=== PATIENT | male | born 1940 | race Caucasian/White ===

== ENCOUNTER 2019-07-16 10:16 | Inpatient (IN) ==
[2019-07-16] MEDS ORDERED: ALBUT/IPRATROP 3MG/0.5MG NEB 3 ML VIAL NEB ONE (10:42)
[2019-07-16 10:50] LABS: Basophils # (auto) 0.02 K/uL (0-0.2); Basophils % (auto) 0.2 %; Eosinophils # (auto) 0.28 K/uL (0-0.5); Eosinophils % (auto) 3.2 %; Hematocrit (blood only) 42.3 % (42-52); Hemoglobin 14.1 g/dL (14.0-18.0); Immature Granulocytes # (auto) 0.02 K/uL (0.00-0.02); Immature Granulocytes % (auto) 0.2 %; Lymphocytes # (auto) 1.42 K/uL (1.2-3.4); Lymphocytes % (auto) 16.4 %; Mean Corpuscular Hemoglobin 30.6 pg (25-34); Mean Corpuscular Hgb Conc 33.3 g/dL (32-36); Mean Corpuscular Volume 91.8 fL (80-100); Mean Platelet Volume 8.9 fL (7.4-10.4); Monocytes # (auto) 0.69 K/uL (0.11-0.59); Neutrophils # (auto) 6.22 K/uL (1.4-6.5); Platelet Count 167 K/uL (130-400); RDW Coefficient of Variation 14.6 % (11.5-14.5); RDW Standard Deviation 48.9 fL (36.4-46.3); Red Blood Count 4.61 M/uL (4.7-6.1); White Blood Count 8.65 K/uL (4.8-10.8)
[2019-07-16 10:57] LABS: Albumin Level 3.4 gm/dl (3.4-5.0); BUN Creatinine Ratio 14.2 (10-20); Calcium 8.7 mg/dl (8.5-10.1); Creatinine Clr Calc Pharmacy 82.5 ml/min; Est GFR (African American) 98.5; Magnesium 1.9 mg/dl (1.8-2.4); Potassium 3.9 mmol/L (3.5-5.1)
[2019-07-16 11:08] LABS: Bilirubin,Total 0.6 mg/dl (0.2-1); Globulin 3.5 gm/dl (2.5-4.0); Thyroid Stimulating Hormone 1.65 uIu/ml (0.300-4.500); Total Protein 6.9 gm/dl (6.4-8.2); Troponin I 0.022 ng/ml (0-0.045)
[2019-07-16] MEDS ORDERED: OPTIRAY 320 125ml IV PRN (11:10)
--- NOTE | 2019-07-16 11:30 | CT Scan Report ---
CT head/brain wo con CLINICAL HISTORY: 79 years-old Male with dizzy, fall. Acute head injury status post fall with dizzin ess TECHNIQUE: Multiple axial CT images of the head were obtained without contrast. A dose lowering tech nique was utilized adhering to the principles of ALARA. COMPARISON: None. FINDINGS: No acute intracranial hemorrhage, midline shift, intracranial mass, hydrocephalus, territorial ischem ia or abnormal extra-axial collection. Age-related involutional changes with ex vacuo ventricular lik steph. Patchy white matter hypodensities suggest chronic microvascular ischemic disease. The calvarium is intact. Trace mastoid effusions. Mild mucoperiosteal thickening of the maxillary an d ethmoid sinuses. Soft tissues and orbits are unremarkable. IMPRESSION: No acute intracranial abnormality or calvarial fracture. The above report was generated using voice recognition software. It may contain grammatical, syntax o r spelling errors. Electronically signed by: Thomas Ny M.D. 07/16/2019 11:29 AM
--- NOTE | 2019-07-16 11:35 | CT Scan Report ---
CT ANGIOGRAM OF THE CHEST CLINICAL HISTORY: Dyspnea. Fall. Dizziness. COMPARISON STUDY: No priors. TECHNIQUE: Following the IV administration of 119 cc of Optiray 320, CT angiogram of the chest was pe rformed from the upper abdomen to the thoracic inlet utilizing the pulmonary embolus protocol. Images are reviewed in the axial, sagittal, and coronal planes. 3-D MIPS images are created and assessed. I V contrast was administered without complication. A dose lowering technique was utilized adhering to the principles of ALARA. The examination is degraded by motion artifact. CT DOSE: 2709.27 mGy.cm FINDINGS: Thyroid: Imaged portions of the thyroid gland are normal in size and attenuation. Thoracic aorta: There is atherosclerotic calcification of the thoracic aorta, which is normal in timmy sahil and demonstrates standard 3-vessel arch anatomy. No dissection is seen. Pulmonary vasculature: The pulmonary trunk is dilated, measuring 3.6 cm in diameter. This suggests pu lmonary artery hypertension. There are no filling defects identified in main, lobar, or segmental pul monary branches to suggest pulmonary embolus. Evaluation of the peripheral branches is degraded by mo tion artifact. Heart: A 2-lead cardiac pacemaker is present in the left chest wall. The heart is enlarged and withou t pericardial effusion. There is lipomatous hypertrophy of the interatrial septum. The coronary arter ies are densely calcified. Lungs and pleural spaces: Evaluation of the lung parenchyma is significantly degraded by motion artif act. Emphysematous change is observed. Foci of scarring/atelectasis are present in both lungs. Mild d iffuse intralobular septal thickening suggests a component of congestive failure. There is a trace ri ght pleural effusion. No airspace consolidation is seen typical for pneumonia. There is no pneumothor ax. The trachea and central airways are clear. Diffuse peribronchial thickening is noted. Mediastinum: There is no mediastinal lymphadenopathy. Alejandrina: Clear. Axillae: There is no axillary lymphadenopathy. Upper abdomen: There is a small hiatal hernia. Reflux of contrast into the IVC and hepatic veins sugg ests cardiac dysfunction. Skeletal structures: The skeletal structures are osteopenic. Degenerative change is seen throughout t he thoracic spine. No lytic or blastic bony lesions are seen. There are healed bilateral rib fracture s. IMPRESSION: 1. There is no evidence of pulmonary embolus in the main, lobar, or segmental pulmonary arteries. 2. Cardiomegaly and cardiac pacemaker. Diffuse intralobular septal thickening suggests a component of congestive failure. Clinical correlation be required. 3. Trace right pleural effusion. 4. Emphysema. 5. Additional findings as above. Electronically signed by: Gerard Dunn M.D. 07/16/2019 11:34 AM
[2019-07-16 11:43] LABS: Base Excess VBG 0.4 mEq/L; HCO3 VBG 28 mmol/L; PCO2 VBG 58 mmHg (38-50); PO2 VBG 23 mmHg
[2019-07-16 11:46] LABS: Oxygen Saturation VBG < 60.0 %
--- NOTE | 2019-07-16 11:50 | CT Scan Report ---
ABDOMEN AND PELVIS CT WITH IV CONTRAST HISTORY: Acute chest and abdominal trauma status post fall fall, weakness TECHNIQUE: Multiaxial CT images of the abdomen and pelvis were performed following the IV administrat ion of 119 cc of Optiray 320, A dose lowering technique was utilized adhering to the principles of A DANIELLA. COMPARISON STUDY: CTA chest and CT lumbar spine studies of same day FINDINGS: Mild intralobular septal thickening of the lung bases. Mild subsegmental bibasilar atelectasis. Trace right pleural effusion. Cardiomegaly with partially imaged pacer leads. No pericardial effusion. No pneumatosis or pneumoperitoneum. The liver, spleen, and adrenal glands are unremarkable. There are a few scattered punctate calcifications noted throughout the pancreas suggestive of chronic pancreatiti s. Unremarkable gallbladder. 12 mm cyst of the inferior pole right kidney. Bilateral nephrolithiasis measures up to 4 mm on the left. No ureteral calculi or obstructive uropathy identified. Mild urinary bladder wall thickening with partial distention. There are 2 adjacent punctate calcifications noted with mild soft tissue prominence conglomerate measuring 6 mm along the left lateral aspect of the uri nary bladder lumen on image 391 series 8. Small fat filled bilateral inguinal hernias with suggestion of hydroceles. Calcifications are noted within the central prostate. 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 No adenopathy. Mild nonspecific wall thickening of the distal esophagus. No bowel obstruction or bowel wall thickeni ng. Colonic diverticulosis without acute diverticulitis. Stool ball noted within the rectum. Normal a ppendix. No ascites or mesenteric inflammation. Soft tissues are within normal limits. Degenerative c hanges of the shoulders and spine. There are several healed remote bilateral rib fractures noted. 25% anterior endplate compression deformity of the L1 vertebral body is technically age-indeterminate ho wever appears chronic. Lumbar levoscoliosis. IMPRESSION: 1. No acute intra-abdominal or intrapelvic abnormality identified. 2. 25% anterior endplate compression deformity of the L1 vertebral body is technically age-indetermin ate however likely chronic. No definite acute fracture identified. 3. Partial distention of the urinary bladder with mild wall thickening. There are a few calcification s noted along the left aspect of the urinary bladder wall. Correlation with cystoscopy should be cons idered to exclude underlying partially calcified mucosal lesion(s). 4. Nonobstructing bilateral nephrolithiasis. 5. Colonic diverticulosis without acute diverticulitis. 6. Additional findings as above. Electronically signed by: Thomas Ny M.D. 07/16/2019 11:48 AM
--- NOTE | 2019-07-16 11:51 | CT Scan Report ---
CT OF THE LUMBAR SPINE CLINICAL HISTORY: fall, back pain COMPARISON STUDY: No previous studies for comparison. TECHNIQUE: Axial images of the lumbar spine were obtained. Sagittal and coronal reconstructions were viewed. Automated exposure control was utilized for the study. A dose lowering technique was utilize d adhering to the principles of ALARA. FINDINGS: Please note that the CT of the abdomen and pelvis will be reported separately. Mild levosco liosis of the lumbar spine is noted. There is severe multilevel disc space narrowing with osteophytos is and vacuum disc phenomenon. There is also severe multilevel facet arthrosis. No acute fracture is noted. Moderate L1 compression deformity is likely old. Paravertebral soft tissues are unremarkable. Central canal neural foramen are suboptimally assessed given CT. IMPRESSION: 1. No acute lumbar spine fracture or subluxation. 2. Moderate L1 compression deformity which is likely old. 3. Severe multilevel degenerative disc disease and facet arthrosis. 4. Mild levoscoliosis of the lumbar spine. Electronically signed by: Kerwin Avery M.D. 07/16/2019 11:49 AM
[2019-07-16] MEDS ORDERED: FUROSEMIDE 40 MG/4 ML VIAL IV STA (12:03)
[2019-07-16] MEDS ORDERED: methylPREDNISolone 125 MG/2 ML VIAL IV STA (12:03)
--- NOTE | 2019-07-16 12:09 | XRay Report ---
XR knee LT 3V CLINICAL HISTORY: Fall. COMPARISON: Left knee fluoroscopic images November 02, 2013. FINDINGS: Cement within the distal left femur and proximal left tibia is noted. A 1 cm subchondral c oncavity of the medial femoral condyle is likely chronic. A moderate size joint effusion is noted. Th ere is no acute fracture. There is mild left knee osteoarthritis. IMPRESSION: 1. No acute fracture. 2. Moderate left knee joint effusion. 3. 1 cm subchondral concavity of the medial femoral condyle which is likely chronic. 4. Cement within the distal left femur and proximal left tibia from previous procedure. Electronically signed by: Kerwin Avery M.D. 07/16/2019 12:08 PM
--- NOTE | 2019-07-16 12:10 | XRay Report ---
XR knee RT 3V CLINICAL HISTORY: fall COMPARISON: None FINDINGS: Alignment of the right knee is anatomic. There is no acute fracture. There is a small to m oderate joint effusion. There is mild medial compartment osteoarthritis. Well-corticated calcificatio ns adjacent to the tibial tubercle are chronic. IMPRESSION: 1. No acute fracture. 2. Small to moderate right knee joint effusion. Electronically signed by: Kerwin Avery M.D. 07/16/2019 12:09 PM
--- NOTE | 2019-07-16 12:11 | XRay Report ---
XR chest 1V portable HISTORY: 79 years-old Male weakness acute weakness COMPARISON: CTA of the chest of same day TECHNIQUE: Portable AP view of the chest FINDINGS: Cardiac silhouette is enlarged. Left subclavian pacer. No pneumothorax or large pleural effusion. Josias ateral interstitial coarsening is noted with pulmonary vascular congestion. Degenerative changes of t he shoulders and spine. Calcific plaque of the thoracic aortic arch. IMPRESSION: Cardiomegaly with mild pulmonary edema. The above report was generated using voice recognition software. It may contain grammatical, syntax o r spelling errors. Electronically signed by: Thomas Ny M.D. 07/16/2019 12:09 PM
[2019-07-16 13:08] LABS: Appearance Urine Clear (Clear); Bacteria Urine Automated Negative (Negative); Bilirubin Urine Negative (Negative); Blood Urine Negative (Negative); Cast Urine Automated 0 /lpf (0-5); Color Urine Yellow; Glucose Urine UA Negative (Negative); Ketones Urine Negative (Negative); Leukocyte Esterase Urine Negative (Negative); Nitrite Urine Negative (Negative); Protein Urine 2+ (Negative); RBC Urine Automated 0-4 /hpf (0-4); Specific Gravity Urine > 1.045 (1.000-1.030); Urobilinogen Urine Negative (Negative)
[2019-07-16] MEDS ORDERED: cefTRIAXone SODIUM 2,000 MG in DEXTROSE 5% 50 ML IV SCH (14:00)
[2019-07-16] MEDS ORDERED: CONSULT PHARMACY STA (14:05)
[2019-07-16] MEDS ORDERED: CEFTRIAXONE CONSULT PHARMACY PRN (14:10)
--- NOTE | 2019-07-16 14:25 | History & Physical Report ---
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 Dixon [facility]), HLD, COPD, Tobacco abuse, nocturnal hypoxia on 2L O2 at HS, depression, GERD, hx of bladder ca low-grade papillary urothelial carcinoma (04/2012 s/p cystoscopy), presents to [facility] ED secondary to lower extremity weakness and fall x3 this morning as well as increasing shortness of breath and cough x2 weeks. Likely in setting of COPD Exac, respiratory acidosis with CO2 retention infectious etiology not entirely ruled out Also possible concern for underlying CHF exac 2/2 to COPD admit to PCU continue bipap until respiratory status, hypercarbia improves IV solumedrol 40mg q8hr IV rocephin - per pharmacy (avoid levaquin given cardiac hx,age, QTC prolonged), along with doxycycline 100mg bid oral to cover for atypical x 5 days pulmonary toilet with duoneb, incentive spirometry and flutter valve blood culture, sputum culture, pro ofelia pending Received IV lasix 40mg in ED - hold any further lasix monitor volume status, clinically doesn't appear volume overloaded (5) Pulmonary edema: likely in setting of COPD exac obtain accurate weight when admitted to floor baseline ~185 received Lasix IV 40mg x 1 monitor volume status closely obtain echo daily weight strict I and O (6) Diabetes: Unknown A1c Obtain A1c in a.m. Hold metformin, NovoLog per protocol (7) CAD (coronary artery disease): On ASA, Zetia, metoprolol, losartan, Imdur Denies chest pain ECG AV paced Obtain echocardiogram -unknown baseline He denies history of CHF, troponin and proBNP WNL On exam patient appears euvolemic, slightly on dry side and urine is concentrated He received 20 mg IV Lasix in ED Ultrasound of IVC did not reveal hypervolemia Strict I's and O's Daily weights -obtain accurate weight on fluid with standing scale, 06/27 he was 190 pounds at PCP office (7 pounds higher than prior visit) (8) HTN (hypertension): Blood pressure controlled Continue losartan 25 mg daily Hold Lasix for now, monitor volume status closely (9) High cholesterol: Continue colesevem (10) Tobacco abuse: Encourage smoking cessation Nicotine patch (11) Depression: Continue Zoloft, trazodone Euthymic affect Trazodone recently started 1.5 weeks ago (12) Chronic pain: 2/2 to Lumbar spinal stenosis CT scan lumbar spine reveals chronic L1 compression deformity on oxycodone 2.5mg prn ( new in the past 1.5 weeks ) caution use given falls and resp status (13) History of bladder cancer: CT scan:Partial distention of the urinary bladder with mild wall thickening. There are a few calcifications noted along the left aspect of the urinary bladder wall. Correlation with cystoscopy should be considered to exclude underlying partially calcified mucosal lesion(s). Hx of bladder ca 2011, last cystoscopy 3 years ago per pt. recommend urology follow up as outpt (14) DVT prophylaxis: Lovenox, SCD/TEDS Disposition: Admit to PCU Follow up: PCP Dr. Barriga upon discharge; would recommend urology follow up given abnormal findings on abd CT and hx of bladder ca Pt was seen and examined in collaboration with Dr. Vasquez, please see addendum History of Present Illness Chief Complaint: Lower extremity weakness and fall times 3 x 1 day; increasing shortness breath and cough x2 weeks. 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 Dixon [facility]), HLD, COPD, Tobacco abuse, nocturnal hypoxia on 2L O2 at HS, depression, GERD, hx of bladder ca low-grade papillary urothelial carcinoma (04/2012 s/p cystoscopy), presents to [facility] ED secondary to lower extremity weakness and fall x3 this morning as well as increasing shortness of breath and cough x2 weeks. and son are at bedside. He elicits he woke up this morning and when trying to go to the bathroom at 3 falls, felt very weak in his legs. He did not lose consciousness or hit his head. He did feel dizzy prior to fall, but not presyncope. He further elicits to having increasing cough over the past 2 weeks, productive, clear sputum, increasing shortness of breath at rest and with exertion, and wheezing. He denies any purulence in sputum fever, chills, sweats, lightheadedness, chest pain, hemoptysis, nausea, vomiting, abdominal pain, dysuria, increased urgency or frequency with urination, change in bowel habits. He is a current half a pac k per day smoker and has smoked since age of 14. He states he does wear 2 L of oxygen at bedtime. He denies any orthopnea or PND, but feels like he wakes up "gasping for air." He denies any increased lower extremity swelling. He does not monitor his weights, but was told his weight was up at his last PCP visit. Discussed case with ED provider. Records were obtained from PCP which did reveal last visit 06/27/2019 in which she is losartan was decreased to 25 mg daily, gabapentin decreased to twice daily. He was started on oxycodone 2.5 mg twice daily as needed secondary to chronic low back pain due to spinal stenosis. He was also encouraged to start Medrol Dosepak. His weight was 190 pounds which was a 7 pounds higher than prior visit. In ED patient remained hemodynamically stable; however was hypoxic requiring 2 L of O2. His CBC was relatively unremarkable, ABG pH 7.30, PCO2 58, BUN/creatinine 11 and 0.80, glucose 133. Glucose WNL at .022, proBN 1,432, TSH 1.67. CTA chest negative for PE, But did reveal diffuse interlobular septal thickening suggesting component of CHF. He had numerous imaging due to fall, lumbar spine CT did reveal a compression deformity at L1. In ED he received furosemide 40 mg x 1 and 60 mg of IV Solu-Medrol. He also received hour-long neb treatment. IVC ultrasound performed at bedside by ED provider which revealed mildly collapsible IVC, but no carlos overload. During my evaluation he was using accessory muscle use despite saturating well on O2. Respiratory therapy was consulted and he was placed on BiPAP. Allergies Allergy/AdvReac Type Severity Reaction Status Date / Time ibuprofen AdvReac Intermediate HIVES Verified 07/16/19 10:35 Home Medications Home Medications Medication Instructions Recorded Confirmed Type aspirin [Aspir-81] 81 mg PO DAILY 07/16/19 07/16/19 History cholecalciferol (vitamin D3) 5,000 unit PO DAILY 07/16/19 07/16/19 History [Vitamin D3] colesevelam 625 mg PO BID 07/16/19 07/16/19 History ezetimibe 10 mg PO HS 07/16/19 07/16/19 History euvkvdobgho-pvexushwy-bxtxgmgm 1 inh INHALATION DAILY 07/16/19 07/16/19 History [Trelegy Ellipta] furosemide 20 mg PO MOWEFR 07/16/19 07/16/19 History gabapentin 100 mg PO BIDM 07/16/19 07/16/19 History isosorbide mononitrate 20 mg PO BID 07/16/19 07/16/19 History losartan 25 mg PO DAILY 07/16/19 07/16/19 History metformin 500 mg PO QPM 07/16/19 07/16/19 History metoprolol succinate 25 mg PO DAILY 07/16/19 07/16/19 History oxycodone 2.5 mg PO DAILY PRN 07/16/19 07/16/19 History sertraline 100 mg PO DAILY 07/16/19 07/16/19 History trazodone 50 mg PO DAILY 07/16/19 07/16/19 History Past Med/Surg History Medical History CAD (coronary artery disease) History of inferior [place], angioplasty right 12/1993; non-Q wave [place] 3; angioplasty and stent circumflex 07/03 Cardiac pacemaker in situ Secondary to bradycardia 02/18/2017 at [facility] Dr. Dixon Chronic pain COPD (chronic obstructive pulmonary disease) Depression Diabetes GERD (gastroesophageal reflux disease) High cholesterol History of bladder cancer Removed by cystoscopy Dr. Martinez 02/23/2012, low-grade papillary urothelial carcinoma with squamous differentiation, per family he has not followed up with cystoscopy in 3 years History of fall Lumbar spinal stenosis Tobacco abuse Surgical History History of ankle surgery History of coronary angioplasty History of pacemaker Family History (Updated 07/16/19 @ 14:34 by Dilcia Roblero PA-C) Other Coronary heart disease Social History (Updated 07/16/19 @ 14:35 by Dilcia Roblero PA-C) Preferred Language: Turkish Communication Ability: Effective [employer] Service Technician Required: No Beliefs That Will Affect Care: None marital status: Current Living Situation: Spouse Other Information That Helps Us Care for You: No Feels Safe at Home: Yes Safety Concerns: Feels Safe At This Time Smoking Status: Current every day smoker Tobacco Type: cigarettes ; Age Started Using Tobacco: 14 ; packs per day: 0.5 ; Years Smoked: 66 ; Do You Dip or Chew Tobacco: No ; Second Hand Exposure: No ; Tobacco Cessation Education Requested by Patient: No Hx Alcohol Use: No Hx Substance Use: No Review of Systems Review of Systems: All systems reviewed & are unremarkable except as noted in HPI & below Physical Exam Physical Exam: constitutional: Elderly, male, lying in bed, using accessory muscles for breathing, on O2 via NC, vitals as above, drowsy but arousable, answers questions appropriately, dyspneic with conversation Head: Normocephalic, Atraumatic Eyes: PERRL, conjunctivae normal, anicteric sclerae, ENMT: external ear and nose normal, oropharynx normal, dry mucous membranes Neck: trachea midline, no thyromegaly normal visual inspection Respiratory: Increased respiratory effort using abdominal musculature, decreased breath sounds at bases, coarse breath sounds throughout, significant expiratory wheezing throughout, wet cough noted on exam, no rales, rhonchi. Cardiovascular: RRR, no murmur, heart sounds distant secondary to coarse breath sounds, no edema Vessels: no JVD or carotid bruit Chest: normal inspection of chest Abdomen: Protuberant abdomen, firm, nontender, no hepatosplenomegaly Musculoskeletal: no cyanosis or clubbing, extremities motor strength 5/5 Skin: no rashes, warm and dry mild turgor Neurologic: PERRL, EOMI, accommodation nl, no face palsy, no dysarthria CN's II-XI intact bilaterally and moves all extremities Psychiatric: A+Ox3, euthymic affect Lymphatic: no cervical or axillary lymphadenopathy : deferred Results & Data Vital Signs (Past 12 Hours) Vital Signs Temp Pulse Pulse Resp BP BP Pulse Ox 07/16/19 13:48 80 19 97 07/16/19 12:59 82 22 137/76 98 07/16/19 12:00 74 18 149/101 H 100 07/16/19 11:29 19 98 07/16/19 10:50 97 07/16/19 10:25 36.8 C 70 18 169/97 H 91 Laboratory Results Short CBC 07/16/19 07/16/19 Range/Units 10:06 10:06 WBC 8.65 (4.8-10.8) K/uL Hgb 14.1 (14.0-18.0) g/dL Hct 42.3 (42-52) % Plt Count 167 (130-400) K/uL NT-Pro-B Natriuret Pep 1432 (0-1800) pg/ml BMP 07/16/19 10:06 Sodium 145 Potassium 3.9 Chloride 111 H Carbon Dioxide 30 BUN 11 Creatinine 0.80 Glucose 133 H Calcium 8.7 Cardiac Enzymes 07/16/19 Range/Units 10:06 Total Creatine Kinase 163 (39-308) U/L Troponin I 0.022 (0-0.045) ng/ml Liver Function 07/16/19 Range/Units 10:06 Total Bilirubin 0.6 (0.2-1) mg/dl AST 15 (15-37) U/L ALT 20 (12-78) U/L Alkaline Phosphatase 104 (45-117) U/L Albumin 3.4 (3.4-5.0) gm/dl Urine 07/16/19 Range/Units 12:20 Urine Color Yellow Urine Appearance Clear (Clear) Urine pH 6.0 (4.5-7.5) Ur Specific [place] > 1.045 H (1.000-1.030) Urine Protein 2+ H (Negative) Urine Glucose (UA) Negative (Negative) Diagnostic Findings Abd/pelvis CT: 1. No acute intra-abdominal or intrapelvic abnormality identified. 2. 25% anterior endplate compression deformity of the L1 vertebral body is technically age-indeterminate however likely chronic. No definite acute fracture identified. 3. Partial distention of the urinary bladder with mild wall thickening. There are a few calcifications noted along the left aspect of the urinary bladder wall. Correlation with cystoscopy should be considered to exclude underlying partially calcified mucosal lesion(s). 4. Nonobstructing bilateral nephrolithiasis. 5. Colonic diverticulosis without acute diverticulitis. 6. Additional findings as above. Chest CTA: IMPRESSION: 1. There is no evidence of pulmonary embolus in the main, lobar, or segmental pulmonary arteries. 2. Cardiomegaly and cardiac pacemaker. Diffuse intralobular septal thickening suggests a component of congestive failure. Clinical correlation be required. 3. Trace right pleural effusion. 4. Emphysema. 5. Additional findings as above. CXR: IMPRESSION: Cardiomegaly with mild pulmonary edema. Head CT: FINDINGS: No acute intracranial hemorrhage, midline shift, intracranial mass, hydrocephalus, territorial ischemia or abnormal extra-axial collection. Age- related involutional changes with ex vacuo ventricular likely. Patchy white matter hypodensities suggest chronic microvascular ischemic disease. The calvarium is intact. Trace mastoid effusions. Mild mucoperiosteal thickening of the maxillary and ethmoid sinuses. Soft tissues and orbits are unremarkable. IMPRESSION: No acute intracranial abnormality or calvarial fracture. Knee Xray: IMPRESSION: 1. No acute fracture. 2. Moderate left knee joint effusion. 3. 1 cm subchondral concavity of the medial femoral condyle which is likely chronic. 4. Cement within the distal left femur and proximal left tibia from previous procedure. Knee Xray: IMPRESSION: 1. No acute fracture. 2. Small to moderate right knee joint effusion. Lumbar Spine CT: IMPRESSION: 1. No acute lumbar spine fracture or subluxation. 2. Moderate L1 compression deformity which is likely old. 3. Severe multilevel degenerative disc disease and facet arthrosis. 4. Mild levoscoliosis of the lumbar spine. Medications Administered Ioversol (Optiray 320 125ml) 119 ml IV ONCE PRN PRN Reason: Interaction Checking Stop: 07/20/19 11:09 Last Admin: 07/16/19 11:11 Dose: 119 ml Documented by: [id number] Discontinued Medications Albuterol (Duoneb) 12 ml NEB ONE ONE Stop: 07/16/19 10:43 Last Admin: 07/16/19 11:27 Dose: 12 ml Documented by: [id number] Furosemide (Lasix) 40 mg IV NOW STA Stop: 07/16/19 12:04 Last Admin: 07/16/19 12:29 Dose: 40 mg Documented by: [id number] Methylprednisolone (Solumedrol) 60 mg IV NOW STA Stop: 07/16/19 12:04 Last Admin: 07/16/19 12:29 Dose: 60 mg Documented by: [id number] ECG Findings: + paced rhythm and + prolonged QT (537ms) Code Status & VTE Plan Code Status Full Code VTE Prophylaxis Plan VTE Prophylaxis will be ordered: Yes Supervising Physician Co-Signing Physician Notes I have seen and examined the patient and have discussed the case with the provider above. I agree with the assessment and plan as stated with the following exceptions. 79 yo M with SOB and coughing x 2 weeks. Wheezing and increased sputum production. No weight gain but evidence of pulm vascular congestion on CXR. Physical reveals WNWD man in slight respiratory distress. Normal mentation and he is not somnolent. Oriented. Lungs reveals wheezing throughout all lung parrish without crackles or rales. Heart exam reveals S1/2 without evidence of m/g/r. No edema or JVD present. IVC examined with bedside US in ER and was collapsible indicating intravascular depletion. UA reveals concentrated urine. Lasix 40mg IV in ER, and good response with 800 cc output within 6 hours, however,he remained tachypneic. Also given in ER was 1 hr neb treatment with albuterol, and BIPAP was started for a few hours. Tachypnea returned and an additional neb trt was given, however, patient is requiring BIPA P. Hypoxia present with significant wheezing thought secondary to a COPD exacerbation. Cont plan as above with scheduled neb treatments, solumedrol, rocephin and monitor for a repsonse. BIPAP overnight. Pt is a full code and is OK with intubation if needed in the short term. DO Pedro (1) Pulmonary edema Chronicity: acute Qualified Code(s): J81.0 - Acute pulmonary edema (2) Fall Encounter type: initial encounter Qualified Code(s): W19.XXXA - Unspecified fall, initial encounter
[2019-07-16] MEDS ORDERED: cefTRIAXone SODIUM 2000MG/70ML D5W IV ONE (14:54)
[2019-07-16 15:04] LABS: Allen Test Pos (Pos); Base Excess ABG -2.5 mEq/L (-9-1.8); HCO3 ABG 22 mmol/L (19-24); Oxygen Saturation ABG 96.6 % (90-95); PCO2 ABG 37 mmHg (35-46); PO2 ABG 84 mm/Hg (80-95)
--- NOTE | 2019-07-16 16:07 | Emergency Department Note ---
Entered by Madhuri Stack acting as a scribe for Bryan Cruz M.D. History of Present Illness General Chief complaint: Fall Time Seen by Provider: 07/16/19 10:22 Source: patient and family Mode of arrival: EMS History of Present Illness Onset (ago): hour(s) 2 Location: head (Falls) Severity: similar to prior episodes Pain Consistency: + other (episodic) Quality: + other (Falls) Associated symptoms: + shortness of breath and + other (Falls, dizzy, leg pain, ear pain.); no confusion, no headaches and no loss of appetite Treatments prior to arrival: other (Fentanyl) The patient is a 79 year old male presenting to the Emergency Department via EMS complaining of episodic falls starting 2 hours ago. The patient reports that he fell this morning from a standing position and fell sideways. He states that he was able to get up after this fall but that it was hard. He explains that after this initial fall, he fell twice more. He notes that both of his legs are sore. He adds that he wasnt able to get up by himself after his last fall. The patient reports that he has fallen before. He states that his ears hurt and that he is having trouble hearing. He explains that he sometimes feels dizzy. He adds that he feels off. The patients family reports that the patient has trouble breathing and uses supplemental oxygen at night but never during the day. They state that the patient regularly smokes. They explain that the patient takes Metformin for potential DM but that he never checks his blood glucose. They note that the patient follows with his PCP in [place], [place]. The patients nurse reports that that the patient received 100 mcg of Fentanyl from EMS [facility]. The patient denies recent head trauma, headache, neck pain, upper extremity pain, confusion and loss of appetite. Home Medications Home Medications Medication Instructions Recorded Confirmed Type aspirin [Aspir-81] 81 mg PO DAILY 07/16/19 07/16/19 History cholecalciferol (vitamin D3) 5,000 unit PO DAILY 07/16/19 07/16/19 History [Vitamin D3] colesevelam 625 mg PO BID 07/16/19 07/16/19 History ezetimibe 10 mg PO HS 07/16/19 07/16/19 History xxanqzyitxz-tnyxoyyab-gstbjfgp 1 inh INHALATION BID 07/16/19 07/16/19 History [Trelegy Ellipta] furosemide 20 mg PO MOWEFR 07/16/19 07/16/19 History gabapentin 100 mg PO BIDM 07/16/19 07/16/19 History isosorbide mononitrate 20 mg PO BID 07/16/19 07/16/19 History losartan 25 mg PO DAILY 07/16/19 07/16/19 History metformin 500 mg PO QPM 07/16/19 07/16/19 History metoprolol succinate 25 mg PO DAILY 07/16/19 07/16/19 History oxycodone 2.5 mg PO DAILY PRN 07/16/19 07/16/19 History sertraline 100 mg PO DAILY 07/16/19 07/16/19 History trazodone 50 mg PO DAILY 07/16/19 07/16/19 History Allergies Allergy/AdvReac Type Severity Reaction Status Date / Time ibuprofen AdvReac Intermediate HIVES Verified 07/16/19 10:35 Past Med/Surg History Medical History CAD (coronary artery disease) History of inferior NC, angioplasty right 12/1993; non-Q wave NC 3; angioplasty and stent circumflex 07/03 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 Dixon Chronic pain COPD (chronic obstructive pulmonary disease) Depression Diabetes GERD (gastroesophageal reflux disease) High cholesterol History of bladder cancer Removed by cystoscopy Dr. Martinez 02/23/2012, low-grade papillary urothelial carcinoma with squamous differentiation, per family he has not followed up with cystoscopy in 3 years History of fall Lumbar spinal stenosis Tobacco abuse Surgical History History of ankle surgery History of coronary angioplasty History of pacemaker Family History (Updated 07/16/19 @ 14:34 by Dilcia Roblero PA-C) Other Coronary heart disease Social History (Updated 07/16/19 @ 14:35 by Dilcia Roblero PA-C) Preferred Language: Swedish Communication Ability: Effective marital status: Current Living Situation: Spouse Feels Safe at Home: Yes Smoking Status: Current every day smoker Age Started Using Tobacco: 14 ; packs per day: 0.5 ; Years Smoked: 66 ; Hx Alcohol Use: Yes (In the past, no current alcohol use) Hx Substance Use: No Review of Systems See HPI for pertinent positives & negatives. and A total of 10 systems reviewed and were otherwise negative Physical Exam Vital Signs Vital Signs - 24 hr 07/16/19 10:25 07/16/19 10:50 07/16/19 11:29 Temperature 36.8 C Temperature Source Oral Pulse Rate 70 Pulse Rate [Apical] Respiratory Rate 18 19 Respiratory Effort / Characteristics Non-Labored Spontaneous Respiratory Depth Respiratory Pattern Blood Pressure 169/97 H Blood Pressure [Left Arm] Blood Pressure Mean 121 Blood Pressure Mean [Left Arm] Pulse Oximetry 91 97 98 Oxygen Delivery Method Room Air Nasal Cannula Nasal Cannula Oxygen Flow Rate 2 2 Fraction of Inspired Oxygen Sepsis Recent Fever Within 48 Hours No Sepsis New/Unexplained Change in Mental Status No Sepsis Action Taken by Nursing No Action Required 07/16/19 12:00 07/16/19 12:59 07/16/19 13:48 Temperature Temperature Source Pulse Rate 80 Pulse Rate [Apical] 74 82 Respiratory Rate 18 22 19 Respiratory Effort / Characteristics Grunting Labored Respiratory Depth Shallow Respiratory Pattern Irregular Blood Pressure Blood Pressure [Left Arm] 149/101 H 137/76 Blood Pressure Mean Blood Pressure Mean [Left Arm] 117 96 Pulse Oximetry 100 98 97 Oxygen Delivery Method Nebulizer Nasal Cannula Oxygen Flow Rate 8 Fraction of Inspired Oxygen 35 Sepsis Recent Fever Within 48 Hours Sepsis New/Unexplained Change in Mental Status Sepsis Action Taken by Nursing GENERAL: Patient appears fatigued. Awake, alert, in no distress. HENT: Normocephalic, atraumatic. EYES: Normal conjunctiva. Sclera non-icteric. PERRL. NECK: Supple. No nuchal rigidity. RESPIRATORY: Increased work of breathing. Expiratory wheeze. Diminished bases. CARDIAC: Normal rate. Irregular rhythm. Extremities warm and well perfused. GI: Soft, non-distended. No tenderness to palpation. RECTAL: Deferred. MUSCULOSKELETAL: Atraumatic. Chest examination reveals no tenderness. LOWER EXTREMITIES: Mild bilateral knee tenderness. Calves are equal size bilaterally. No edema NEURO: No sensory or motor deficits noted. No facial droop. Somewhat slow to answer. SKIN: Warm and dry. No rash or jaundice noted. Course Course 1025: The patient was evaluated in room B9, and a complete history and physical examination were performed. 1214: I reevlauated the patient at this time. 1221: I discussed the patient's case with Delmy Parsons PA-C. Dr. Vasquez [facility] hospitalist will evaluate the patient for further management. Administered Medications Ioversol (Optiray 320 125ml) 119 ml IV ONCE PRN PRN Reason: Interaction Checking Stop: 07/20/19 11:09 Last Admin: 07/16/19 11:11 Dose: 119 ml Documented by: [id number] Discontinued Medications Albuterol (Duoneb) 12 ml NEB ONE ONE Stop: 07/16/19 10:43 Last Admin: 07/16/19 11:27 Dose: 12 ml Documented by: [id number] Ceftriaxone Sodium (Rocephin) Confirm Administered Dose 2,000 mg IV .STK-MED ONE Stop: 07/16/19 14:55 Last Admin: 07/16/19 15:20 Dose: 2,000 mg Documented by: [id number] Furosemide (Lasix) 40 mg IV NOW STA Stop: 07/16/19 12:04 Last Admin: 07/16/19 12:29 Dose: 40 mg Documented by: [id number] Ceftriaxone Sodium 2,000 mg/ (Dextrose) 70 mls @ 140 mls/hr IV Q24H XIOMARA Stop: 07/23/19 13:59 Last Admin: 07/16/19 15:20 Dose: Not Given Documented by: [id number] Methylprednisolone (Solumedrol) 60 mg IV NOW STA Stop: 07/16/19 12:04 Last Admin: 07/16/19 12:29 Dose: 60 mg Documented by: [id number] Medical Decision Making Differential Diagnosis Differential Diagnosis includes but is not limited to dehydration, stroke, anemia, hypoglycemia, hyponatremia, hypernatremia, urinary tract infection, pneumonia, bronchitis, sepsis, gastroenteritis, additional abdominal pathology, metabolic abnormalities and infections. Medical Records Attestation: I reviewed the patient's medical records. Home Medications Current Medication List: was personally reviewed by me Laboratory Data Attestation: I reviewed the patient's lab results. Result diagrams: 07/16/19 10:06 07/16/19 10:06 Lab Results 07/16/19 07/16/19 07/16/19 Range/Units 10:06 10:06 10:06 WBC 8.65 (4.8-10.8) K/uL RBC 4.61 L (4.7-6.1) M/uL Hgb 14.1 (14.0-18.0) g/dL Hct 42.3 (42-52) % MCV 91.8 (80-100) fL MCH 30.6 (25-34) pg MCHC 33.3 (32-36) g/dL RDW Std Deviation 48.9 H (36.4-46.3) fL RDW Coeff of Miri 14.6 H (11.5-14.5) % Plt Count 167 (130-400) K/uL MPV 8.9 (7.4-10.4) fL Immature Gran % (Auto) 0.2 % Neut % (Auto) 72.0 % Lymph % (Auto) 16.4 % [place] % (Auto) 8.0 % Eos % (Auto) 3.2 % Baso % (Auto) 0.2 % Immature Gran # (Auto) 0.02 (0.00-0.02) K/uL Neut # (Auto) 6.22 (1.4-6.5) K/uL Lymph # (Auto) 1.42 (1.2-3.4) K/uL [place] # (Auto) 0.69 H (0.11-0.59) K/uL Eos # (Auto) 0.28 (0-0.5) K/uL Baso # (Auto) 0.02 (0-0.2) K/uL VBG pH (7.36-7.41) VBG pCO2 (38-50) mmHg VBG pO2 mmHg VBG HCO3 mmol/L VBG O2 Saturation % VBG Base Excess mEq/L Barometric Pressure mm/Hg Sodium 145 (136-145) mmol/L Potassium 3.9 (3.5-5.1) mmol/L Chloride 111 H (98-107) mmol/L Carbon Dioxide 30 (21-32) mmol/L Anion Gap 4.0 (3-11) BUN 11 (7-18) mg/dl Creatinine 0.80 (0.6-1.4) mg/dl Est Cr Clr Drug Dosing 82.5 ml/min Est GFR ( Amer) 98.5 Est GFR (Non-Af Amer) 85.0 BUN/Creatinine Ratio 14.2 (10-20) Glucose 133 H (70-99) mg/dl Calcium 8.7 (8.5-10.1) mg/dl Magnesium 1.9 (1.8-2.4) mg/dl Total Bilirubin 0.6 (0.2-1) mg/dl AST 15 (15-37) U/L ALT 20 (12-78) U/L Alkaline Phosphatase 104 (45-117) U/L Total Creatine Kinase 163 (39-308) U/L Troponin I 0.022 (0-0.045) ng/ml NT-Pro-B Natriuret Pep 1432 (0-1800) pg/ml Total Protein 6.9 (6.4-8.2) gm/dl Albumin 3.4 (3.4-5.0) gm/dl Globulin 3.5 (2.5-4.0) gm/dl Albumin/Globulin Ratio 1.0 (0.9-2) TSH 1.650 (0.300-4.500) uIu/ml Urine Color Urine Appearance (Clear) Urine pH (4.5-7.5) Ur Specific Sheridan (1.000-1.030) Urine Protein (Negative) Urine Glucose (UA) (Negative) Urine Ketones (Negative) Urine Blood (Negative) Urine Nitrite (Negative) Urine Bilirubin (Negative) Urine Urobilinogen (Negative) Ur Leukocyte Esterase (Negative) Urine WBC (Auto) (0-5) /hpf Urine RBC (Auto) (0-4) /hpf U Hyaline Cast (Auto) (0-5) /lpf U Epithel Cells (Auto) (0-5) /lpf Urine Bacteria (Auto) (Negative) 07/16/19 07/16/19 Range/Units 11:26 12:20 WBC (4.8-10.8) K/uL RBC (4.7-6.1) M/uL Hgb (14.0-18.0) g/dL Hct (42-52) % MCV (80-100) fL MCH (25-34) pg MCHC (32-36) g/dL RDW Std Deviation (36.4-46.3) fL RDW Coeff of Miri (11.5-14.5) % Plt Count (130-400) K/uL MPV (7.4-10.4) fL Immature Gran % (Auto) % Neut % (Auto) % Lymph % (Auto) % [place] % (Auto) % Eos % (Auto) % Baso % (Auto) % Immature Gran # (Auto) (0.00-0.02) K/uL Neut # (Auto) (1.4-6.5) K/uL Lymph # (Auto) (1.2-3.4) K/uL [place] # (Auto) (0.11-0.59) K/uL Eos # (Auto) (0-0.5) K/uL Baso # (Auto) (0-0.2) K/uL VBG pH 7.30 L (7.36-7.41) VBG pCO2 58 H (38-50) mmHg VBG pO2 23 mmHg VBG HCO3 28 mmol/L VBG O2 Saturation < 60.0 % VBG Base Excess 0.4 mEq/L Barometric Pressure 736.6 mm/Hg Sodium (136-145) mmol/L Potassium (3.5-5.1) mmol/L Chloride (98-107) mmol/L Carbon Dioxide (21-32) mmol/L Anion Gap (3-11) BUN (7-18) mg/dl Creatinine (0.6-1.4) mg/dl Est Cr Clr Drug Dosing ml/min Est GFR ( Amer) Est GFR (Non-Af Amer) BUN/Creatinine Ratio (10-20) Glucose (70-99) mg/dl Calcium (8.5-10.1) mg/dl Magnesium (1.8-2.4) mg/dl Total Bilirubin (0.2-1) mg/dl AST (15-37) U/L ALT (12-78) U/L Alkaline Phosphatase (45-117) U/L Total Creatine Kinase (39-308) U/L Troponin I (0-0.045) ng/ml NT-Pro-B Natriuret Pep (0-1800) pg/ml Total Protein (6.4-8.2) gm/dl Albumin (3.4-5.0) gm/dl Globulin (2.5-4.0) gm/dl Albumin/Globulin Ratio (0.9-2) TSH (0.300-4.500) uIu/ml Urine Color Yellow Urine Appearance Clear (Clear) Urine pH 6.0 (4.5-7.5) Ur Specific Sheridan > 1.045 H (1.000-1.030) Urine Protein 2+ H (Negative) Urine Glucose (UA) Negative (Negative) Urine Ketones Negative (Negative) Urine Blood Negative (Negative) Urine Nitrite Negative (Negative) Urine Bilirubin Negative (Negative) Urine Urobilinogen Negative (Negative) Ur Leukocyte Esterase Negative (Negative) Urine WBC (Auto) 1-5 (0-5) /hpf Urine RBC (Auto) 0-4 (0-4) /hpf U Hyaline Cast (Auto) 0 (0-5) /lpf U Epithel Cells (Auto) 5-10 H (0-5) /lpf Urine Bacteria (Auto) Negative (Negative) Imaging Data Radiologist's Impression: Radiology results as stated below per my review and the radiologist's interpretation: CT head/brain wo con CLINICAL HISTORY: 79 years-old Male with dizzy, fall. Acute head injury status post fall with dizziness TECHNIQUE: Multiple axial CT images of the head were obtained without contrast. A dose lowering technique was utilized adhering to the principles of ALARA. COMPARISON: None. FINDINGS: No acute intracranial hemorrhage, midline shift, intracranial mass, hydrocephalus, territorial ischemia or abnormal extra-axial collection. Age- related involutional changes with ex vacuo ventricular likely. Patchy white matter hypodensities suggest chronic microvascular ischemic disease. The calvarium is intact. Trace mastoid effusions. Mild mucoperiosteal thickening of the maxillary and ethmoid sinuses. Soft tissues and orbits are unremarkable. IMPRESSION: No acute intracranial abnormality or calvarial fracture. The above report was generated using voice recognition software. It may contain grammatical, syntax or spelling errors. Electronically signed by: Thomas Ny M.D. 07/16/2019 11:[address] ANGIOGRAM OF THE CHEST CLINICAL HISTORY: Dyspnea. Fall. Dizziness. COMPARISON STUDY: No priors. TECHNIQUE: Following the IV administration of 119 cc of Optiray 320, CT angiogram of the chest was performed from the upper abdomen to the thoracic inlet utilizing the pulmonary embolus protocol. Images are reviewed in the axial, sagittal, and coronal planes. 3-D MIPS images are created and assessed. IV contrast was administered without complication. A dose lowering technique was utilized adhering to the principles of ALARA. The examination is degraded by motion artifact. CT DOSE: 2709.27 mGy.cm FINDINGS: Thyroid: Imaged portions of the thyroid gland are normal in size and attenuation. Thoracic aorta: There is atherosclerotic calcification of the thoracic aorta, which is normal in caliber and demonstrates standard 3-vessel arch anatomy. No dissection is seen. Pulmonary vasculature: The pulmonary trunk is dilated, measuring 3.6 cm in diameter. This suggests pulmonary artery hypertension. There are no filling defects identified in main, lobar, or segmental pulmonary branches to suggest pulmonary embolus. Evaluation of the peripheral branches is degraded by motion artifact. Heart: A 2-lead cardiac pacemaker is present in the left chest wall. The heart is enlarged and without pericardial effusion. There is lipomatous hypertrophy of the interatrial septum. The coronary arteries are densely calcified. Lungs and pleural spaces: Evaluation of the lung parenchyma is significantly degraded by motion artifact. Emphysematous change is observed. Foci of scarring/atelectasis are present in both lungs. Mild diffuse intralobular septal thickening suggests a component of congestive failure. There is a trace right pleural effusion. No airspace consolidation is seen typical for pneumonia. There is no pneumothorax. The trachea and central airways are clear. Diffuse peribronchial thickening is noted. Mediastinum: There is no mediastinal lymphadenopathy. Alejandrina: Clear. Axillae: There is no axillary lymphadenopathy. Upper abdomen: There is a small hiatal hernia. Reflux of contrast into the IVC and hepatic veins suggests cardiac dysfunction. Skeletal structures: The skeletal structures are osteopenic. Degenerative change is seen throughout the thoracic spine. No lytic or blastic bony lesions are seen. There are healed bilateral rib fractures. IMPRESSION: 1. There is no evidence of pulmonary embolus in the main, lobar, or segmental pulmonary arteries. 2. Cardiomegaly and cardiac pacemaker. Diffuse intralobular septal thickening suggests a component of congestive failure. Clinical correlation be required. 3. Trace right pleural effusion. 4. Emphysema. 5. Additional findings as above. Electronically signed by: Gerard Dunn M.D. 07/16/2019 11:34 AM A[address]OMEN AND PELVIS CT WITH IV CONTRAST HISTORY: Acute chest and abdominal trauma status post fall fall, weakness TECHNIQUE: Multiaxial CT images of the abdomen and pelvis were performed following the IV administration of 119 cc of Optiray 320, A dose lowering technique was utilized adhering to the principles of ALARA. COMPARISON STUDY: CTA chest and CT lumbar spine studies of same day FINDINGS: Mild intralobular septal thickening of the lung bases. Mild subsegmental bibasilar atelectasis. Trace right pleural effusion. Cardiomegaly with partially imaged pacer leads. No pericardial effusion. No pneumatosis or pneumoperitoneum. The liver, spleen, and adrenal glands are unremarkable. There are a few scattered punctate calcifications noted throughout the pancreas suggestive of chronic pancreatitis. Unremarkable gallbladder. 12 mm cyst of the inferior pole right kidney. Bilateral nephrolithiasis measures up to 4 mm on the left. No ureteral calculi or obstructive uropathy identified. Mild urinary bladder wall thickening with partial distention. There are 2 adjacent punctate calcifications noted with mild soft tissue prominence conglomerate measuring 6 mm along the left lateral aspect of the urinary bladder lumen on image 391 series 8. Small fat filled bilateral inguinal hernias with suggestion of hydroceles. Calc ifications are noted within the central prostate. 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 No adenopathy. Mild nonspecific wall thickening of the distal esophagus. No bowel obstruction or bowel wall thickening. Colonic diverticulosis without acute diverticulitis. S tool ball noted within the rectum. Normal appendix. No ascites or mesenteric inflammation. Soft tissues are within normal limits. Degenerative changes of the shoulders and spine. There are several healed remote bilateral rib fractures noted. 25% anterior endplate compression deformity of the L1 vertebral body is technically age-indeterminate however appears chronic. Lumbar levoscoliosis. IMPRESSION: 1. No acute intra-abdominal or intrapelvic abnormality identified. 2. 25% anterior endplate compression deformity of the L1 vertebral body is technically age-indeterminate however likely chronic. No definite acute fracture identified. 3. Partial distention of the urinary bladder with mild wall thickening. There are a few calcifications noted along the left aspect of the urinary bladder wall. Correlation with cystoscopy should be considered to exclude underlying partially calcified mucosal lesion(s). 4. Nonobstructing bilateral nephrolithiasis. 5. Colonic diverticulosis without acute diverticulitis. 6. Additional findings as above. Electronically signed by: Thomas Ny M.D. 07/16/2019 11:[address] OF THE LUMBAR SPINE CLINICAL HISTORY: fall, back pain COMPARISON STUDY: No previous studies for comparison. TECHNIQUE: Axial images of the lumbar spine were obtained. Sagittal and coronal reconstructions were viewed. Automated exposure control was utilized for the study. A dose lowering technique was utilized adhering to the principles of ALARA. FINDINGS: Please note that the CT of the abdomen and pelvis will be reported separately. Mild levoscoliosis of the lumbar spine is noted. There is severe multilevel disc space narrowing with osteophytosis and vacuum disc phenomenon. There is also severe multilevel facet arthrosis. No acute fracture is noted. Moderate L1 compression deformity is likely old. Paravertebral soft tissues are unremarkable. Central canal neural foramen are suboptimally assessed given CT. IMPRESSION: 1. No acute lumbar spine fracture or subluxation. 2. Moderate L1 compression deformity which is likely old. 3. Severe multilevel degenerative disc disease and facet arthrosis. 4. Mild levoscoliosis of the lumbar spine. Electronically signed by: Kerwin Avery M.D. 07/16/2019 11:49 AM XR chest 1V portable HISTORY: 79 years-old Male weakness acute weakness COMPARISON: CTA of the chest of same day TECHNIQUE: Portable AP view of the chest FINDINGS: Cardiac silhouette is enlarged. Left subclavian pacer. No pneumothorax or large pleural effusion. Bilateral interstitial coarsening is noted with pulmonary vascular congestion. Degenerative changes of the shoulders and spine. Calcific plaque of the thoracic aortic arch. IMPRESSION: Cardiomegaly with mild pulmonary edema. The above report was generated using voice recognition software. It may contain grammatical, syntax or spelling errors. Electronically signed by: Thomas Ny M.D. 07/16/2019 12:09 PM XR knee LT 3V CLINICAL HISTORY: Fall. COMPARISON: Left knee fluoroscopic images November 02, 2013. FINDINGS: Cement within the distal left femur and proximal left tibia is noted. A 1 cm subchondral concavity of the medial femoral condyle is likely chronic. A moderate size joint effusion is noted. There is no acute fracture. There is mild left knee osteoarthritis. IMPRESSION: 1. No acute fracture. 2. Moderate left knee joint effusion. 3. 1 cm subchondral concavity of the medial femoral condyle which is likely chronic. 4. Cement within the distal left femur and proximal left tibia from previous procedure. Electronically signed by: Kerwin Avery M.D. 07/16/2019 12:08 PM XR knee RT 3V CLINICAL HISTORY: fall COMPARISON: None FINDINGS: Alignment of the right knee is anatomic. There is no acute fracture. There is a small to moderate joint effusion. There is mild medial compartment osteoarthritis. Well-corticated calcifications adjacent to the tibial tubercle are chronic. IMPRESSION: 1. No acute fracture. 2. Small to moderate right knee joint effusion. Electronically signed by: Kerwin Avery M.D. 07/16/2019 12:09 PM ECG Data Attestation: I personally reviewed and interpreted this ECG as follows: Indication: + other (Fall, Dizzy) Rate (beats per minute): 80 Rhythm: + other (AV paced. ) ECG Intervals/blocks: no Normal QRS (Widened QRS.) ECG Findings: no PVCs Comparison ECG Date: from (10/23/13) Change: the following changes noted (Patient is now paced. ) Blood Pressure Blood Pressure Findings: Elevated blood pressure Blood Pressure Disposition: further management by hospitalist KIRK Zhou Patient is a 79-year-old gentleman presenting via ambulance today after a fall; has a past medical history of cardiac disease, diabetes, hyperlipidemia. Evidently this morning felt little bit weak and suffered 3 ground-level type falls. Denies striking his head or anticoagulation use. Seems much more short of breath. Received some fentanyl prior to arrival. Complaining some bilateral knee pain and evidently stated he felt somewhat weak getting up. Patient has wheeze and is requiring some ox upon arrival here. Question if this is from that C versus other pulmonary origin. Patient also still feel a bit dizzy earlier but no focal deficits here. Seemed a little bit slow to answer some questions. CT the head was complete as well as CT of the chest to exclude pneumonia or PE. CT abdomen pelvis and CT lumbar spine completed as well. No acute fractures noted. They are aware of possible bladder mass. CT showed may be some evidence of slight fluid overload. No significant neurological deficit lower extremity. Mild bilateral knee tenderness. X-rays here without evidence of acute fracture or dislocation. Likely musculoskeletal and sprain type injury. Basic labs were completed as well as EKG. basic labs were without significant findings besides some mild acidosis and hypercarbia. Likely more COPD exacerbation than CHF. However, given a small dose of Lasix, Solu-Medrol, and DuoNeb. Patient requires admission for his COPD exacerbation/respiratory status at this time given his weakness. Did not find significant new traumatic injury. Discussed with the hospitalist. Impression & Plan COPD exacerbation, Pulmonary edema, Hypoxia, Fall Discharge Plan Visit Data Chief Complaint: Fall ED Provider: Bryan Cruz Discharge Problem: COPD exacerbation, Pulmonary edema, Hypoxia, Fall Patient Disposition: Being Evaluated by Hospitalist Discharge Instructions Interventions: ED Discharge Assessment Last Done: 07/16/19 15:29 Discharge Problem: Pulmonary edema Qualifiers: Chronicity: acute Qualified Code(s): J81.0 - Acute pulmonary edema Fall Qualifiers: Encounter type: initial encounter Qualified Code(s): W19.XXXA - Unspecified fall, initial encounter The scribe's documentation has been prepared under my direction and personally reviewed by me in its entirety. I confirm that the note above accurately reflect s all work, treatment, procedures, and medical decision making performed by me.
[2019-07-16] MEDS ORDERED: ALUMINUM/MAGNESIUM SUSP 30 ML UDC PO PRN (16:31)
[2019-07-16] MEDS ORDERED: MAGNESIUM HYDROXIDE SUSP 30 ML UDC PO PRN (16:31)
[2019-07-16] MEDS ORDERED: CARBOHYDRATES FOR HYPOGLYCEMIA PO PRN (16:31)
[2019-07-16] MEDS ORDERED: POLYETHYLENE (MIRALAX) 17 GM PACK PO PRN (16:31)
[2019-07-16] MEDS ORDERED: DEXTROSE 50% 50 ML SYRINGE IV PRN (16:31)
[2019-07-16] MEDS ORDERED: GLUCOSE 40% GEL 15 GM TUBE PO PRN (16:31)
[2019-07-16] MEDS ORDERED: ACETAMINOPHEN 325 MG TAB PO PRN (16:31)
[2019-07-16] MEDS ORDERED: OXYCODONE HCL IR 5 MG TAB (IMMEDIATE RELEASE) PO PRN (16:31)
[2019-07-16] MEDS ORDERED: GLUCAGON FOR INJ 1 MG VIAL SQ PRN (16:31)
[2019-07-16] MEDS ORDERED: GLUCOSE 10 TABS/TUBE PO PRN (16:31)
[2019-07-16] MEDS ORDERED: ONDANSETRON INJ 2 MG/ML 2 ML VIAL IV PRN (16:31)
[2019-07-16] MEDS ORDERED: ALBUT/IPRATROP 3MG/0.5MG NEB 3 ML VIAL NEB STA (17:11)
[2019-07-16] MEDS: ALBUT/IPRATROP 3MG/0.5MG NEB 3 ML VIAL NEB SCH ×3 (17:23→23:09)
[2019-07-16] MEDS: DOXYCYCLINE HYCLATE 100 MG CAP PO SCH ×2 (17:52→21:04)
[2019-07-16] MEDS: INSULIN ASPART 100 UNITS/ML 3 ML PEN SC SCH ×2 (17:52→21:01)
[2019-07-16] MEDS ORDERED: methylPREDNISolone 40 MG in SYRINGE 0 ML IV SCH (18:00)
[2019-07-16] MEDS ORDERED: ALBUTEROL 0.083% NEBU SOLN 3 ML VIAL NEB STA (18:46)
[2019-07-16 19:32] LABS: Influenza A virus by PCR Neg for Influ A (Neg); Influenza B virus by PCR Neg for Influ B (Neg)
[2019-07-16] MEDS: ENOXAPARIN INJ 40 MG/0.4 ML SYR SQ SCH (21:03)
[2019-07-16] MEDS: EZETIMIBE 10 MG TABLET PO SCH (21:04)
[2019-07-16] MEDS: GABAPENTIN 100 MG CAP PO SCH (21:04)
[2019-07-16] MEDS: ISOSORBIDE MONONITRATE 20 MG TAB PO SCH (21:46)
[2019-07-16] MEDS: methylPREDNISolone 40 MG in SYRINGE 0 ML IV SCH (23:17)
[2019-07-17] MEDS ORDERED: ALBUT/IPRATROP 3MG/0.5MG NEB 3 ML VIAL NEB PRN (01:25)
[2019-07-17] MEDS: ALBUT/IPRATROP 3MG/0.5MG NEB 3 ML VIAL NEB SCH ×4 (03:00→19:12)
[2019-07-17] MEDS: methylPREDNISolone 40 MG in SYRINGE 0 ML IV SCH ×4 (06:06→23:24)
[2019-07-17 07:53] LABS: Hematocrit (blood only) 38.5 % (42-52); Hemoglobin 13.1 g/dL (14.0-18.0); Immature Granulocytes # (auto) 0.02 K/uL (0.00-0.02); Immature Granulocytes % (auto) 0.2 %; Lymphocytes # (auto) 0.56 K/uL (1.2-3.4); Lymphocytes % (auto) 4.4 %; Mean Corpuscular Hemoglobin 30.4 pg (25-34); Mean Corpuscular Volume 89.3 fL (80-100); Mean Platelet Volume 9.3 fL (7.4-10.4); Monocytes # (auto) 0.53 K/uL (0.11-0.59); Monocytes % (auto) 4.2 %; Neutrophils # (auto) 11.63 K/uL (1.4-6.5); Neutrophils % (auto) 91.2 %; Platelet Count 149 K/uL (130-400); RDW Coefficient of Variation 14.5 % (11.5-14.5); RDW Standard Deviation 47.8 fL (36.4-46.3); Red Blood Count 4.31 M/uL (4.7-6.1); White Blood Count 12.74 K/uL (4.8-10.8)
[2019-07-17] MEDS: GABAPENTIN 100 MG CAP PO SCH ×3 (07:59→20:11)
[2019-07-17] MEDS: ISOSORBIDE MONONITRATE 20 MG TAB PO SCH ×2 (07:59→20:11)
[2019-07-17] MEDS: DOXYCYCLINE HYCLATE 100 MG CAP PO SCH ×2 (07:59→20:11)
[2019-07-17] MEDS: CHOLECALCIFEROL 1,000 UNITS TAB PO SCH (08:00)
[2019-07-17] MEDS: NICOTINE 14 MG/24 HR PATCH TD SCH (08:00)
[2019-07-17] MEDS: TRAZODONE HCL 50 MG TAB PO SCH (08:00)
[2019-07-17] MEDS: LOSARTAN POTASSIUM 25 MG TAB PO SCH (08:00)
[2019-07-17] MEDS: METOPROLOL SUCC 25MG EXT REL TAB PO SCH (08:01)
[2019-07-17] MEDS: SERTRALINE HCL 100 MG TABLET PO SCH (08:01)
[2019-07-17] MEDS: ASPIRIN 81 MG ECTAB PO SCH (08:01)
[2019-07-17] MEDS: INSULIN ASPART 100 UNITS/ML 3 ML PEN SC SCH ×4 (08:02→21:33)
[2019-07-17 08:26] LABS: Albumin Globulin Ratio 0.9 (0.9-2); Albumin Level 3.3 gm/dl (3.4-5.0); BUN Creatinine Ratio 21.7 (10-20); Bilirubin,Total 0.4 mg/dl (0.2-1); Calcium 8.8 mg/dl (8.5-10.1); Creatinine Clr Calc Pharmacy 60.5 ml/min; Est GFR (Non-African American) 66.4; Globulin 3.5 gm/dl (2.5-4.0); Potassium 3.6 mmol/L (3.5-5.1); Total Protein 6.8 gm/dl (6.4-8.2)
[2019-07-17 08:33] LABS: Estimated Average Glucose 117 mg/dl; Hemoglobin A1C 5.7 % (4.5-5.6)
[2019-07-17] MEDS ORDERED: VANCOMYCIN CONSULT ACTIVE PRN (14:32)
[2019-07-17] MEDS ORDERED: VANCOMYCIN HCL 2,000 MG in SODIUM CHLORIDE 0.9% 500 ML IV ONE (15:15)
--- NOTE | 2019-07-17 15:21 | Pharmacy Report ---
Pharmacy Abx Dose Short Note - Date of Service July 17, 2019 - Assessment & Plan Assessment 79 year old M ordered empiric vancomycin IV for treatment of gram positive cocci (in clusters) in 1/2 BC * S.aureus/MRSA PCR pending -> if both result as negative isolate is likely CoNS * Patient also on ceftriaxone and doxycycline for treatment of COPD exacerbation * CXR from 07/16: cardiomegaly with mild pulmonary edema * procalcitonin = 0.05 ng/mL Plan Patient meets criteria for vancomycin AUC dosing nomogram: Vancomycin 2000 mg IV (23 mg/kg) x 1, then 1250 mg (14 mg/kg) IV every 12 hours Levels will be ordered if patient continues on therapy beyond 07/18 AUC/ANGELA is the preferred PK/PD target for vancomycin * Target AUC/ANGELA = 400-600 * AUC guided dosing is effective and associated with decreased risk of nephrotoxicity * Trough levels poorly correlate with AUC/ANGELA and trough monitoring has been associated with increased risk of nephrotoxicity Pharmacy will continue to follow and will adjust dose/frequency as necessary. Thank you.
[2019-07-17] MEDS: cefTRIAXone SODIUM 2,000 MG in DEXTROSE 5% 50 ML IV SCH (17:08)
--- NOTE | 2019-07-17 19:43 | Hospitalist Progress Note ---
Date of Service July 17, 2019 Assessment & Plan (1) CHF (congestive heart failure): Chest x-ray showed pulmonary vascular congestion. Echo shows normal systolic function, grade I diastolic dysfunction, apical wall motion abnormality possibly secondary to pacemaker activation. Acute on chronic left ventricular diastolic heart failure. Titrate diuretic therapy. (2) CAD (coronary artery disease): No anginal symptoms. EKG shows paced rhythm. Echo shows normal systolic function, apical wall motion abnormality possibly secondary to pacemaker activation. Continue aspirin, losartan, nitrates, lipid management. (3) Cardiac pacemaker in situ: S/P pacemaker. Appears to be sensing and pacing appropriately. (4) COPD (chronic obstructive pulmonary disease): Severe COPD. Still smoking. Continue nebs and steroids. (5) HTN (hypertension): Continue losartan and isosorbide. 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 Managed with metformin. Hgb A1C 5.7. Hold metformin during hospital stay. Insulin coverage as needed. FBS today = 194. (7) Fall: Several recent falls. Has had associated lightheadedness. Monitor for arrhythmias. Check Orthostatic VS. Management of ambulatory dysfunction as noted below. CT LS spine shoed L1 compression deformity, indeterminate age. X-ray knees show moderate effusions, ? secondary to trauma. Consult Ortho. (8) Ambulatory dysfunction: Has lumbar spinal stenosis and subjective lower extremity weakness. No cord compression seen on CT, but imaging limited. PT / OT evals. Fall precautions. Consult Ortho Spine and Neuro. (9) Lumbar spinal stenosis: As noted above. (10) Diplopia: Intermittent diplopia and blurred vision. No acute findings on CT. Cannot do MRI due to pacemaker. Consult Neurology. (11) Positive blood culture: 1 of 2 blood cultures growing gram + cocci in clusters. PCR for Staph aureus and MSSA negative. Started on IV vancomycin. ? source. Has chronic + worsening lumbar pain, but no apparent discitis or osteomyelitis per CT. Echo does not show any valvular vegetations. Consult ID. (12) Tobacco abuse: Smoking cessation counseling. Nicotine replacement. (13) DVT prophylaxis: SQ enoxaparin. Follow. (14) Discharge planning issues: Discharge disposition to be determined. Internal Medicine follow-up with Dr. Barriga. Subjective Recheck for multiple problems. Patient seen in their room around 1800. Family visiting. Still somewhat SOB. No chest pain. No fever. No significant cough. Ongoing back pain, chronic but worse. Lower extremity weakness. Blurred vision with intermittent diplopia. Would like additional nicotine replacement. Review of Systems: Constitutional- no fever. Cardiac- as noted above. Pulmonary- as noted above. GI- no nausea, vomiting, diarrhea, melena, hematochezia. - no urinary symptoms. Otherwise, as noted above. Physical Exam Constitutional: no acute distress Eyes: + anicteric sclerae Respiratory: no respiratory distress Auscultation: + wheezes Cardiovascular: Rate/Rhythm: regular rate and regular rhythm Heart Sounds: no gallop (none appreciated, exam limited), no murmur (none appreciated, exam limited) and no cardiac rub Vessels: no JVD Extremities: + edema (trace); no calf tenderness Gastrointestinal (Abdomen): normal bowel sounds, soft, nontender, no hepatosplenomegaly Musculoskeletal: Spine: no paraspinal tenderness and straight leg raise negative bilaterally Extremities: no cyanosis Skin: no rashes, warm and dry Neurologic: PERRL, EOMI no facial palsy motor strength upper and lower extremities essentially 5/5 patellar DTR's 1/2 plantar reflexes downgoing Psychiatric: Orientation: alert and oriented x 3 Results & Data Vital Signs (Past 12 Hours) Vital Signs Temp Pulse Resp BP Pulse Ox 07/17/19 19:17 74 18 97 07/17/19 19:15 36.7 C 80 18 95/60 L 95 07/17/19 15:31 36.4 C L 79 18 110/65 96 07/17/19 13:20 75 24 96 07/17/19 12:03 36.9 C 77 18 109/65 92 Laboratory Results Laboratory Results - last 24 hr 07/16/19 07/17/19 07/17/19 14:20 07:38 07:38 WBC 12.74 H RBC 4.31 L Hgb 13.1 L Hct 38.5 L MCV 89.3 MCH 30.4 MCHC 34.0 RDW Std Deviation 47.8 H RDW Coeff of Miri 14.5 Plt Count 149 MPV 9.3 Immature Gran % (Auto) 0.2 Neut % (Auto) 91.2 Lymph % (Auto) 4.4 Cuming % (Auto) 4.2 Eos % (Auto) 0.0 Baso % (Auto) 0.0 Immature Gran # (Auto) 0.02 Neut # (Auto) 11.63 H Lymph # (Auto) 0.56 L Cuming # (Auto) 0.53 Eos # (Auto) 0.00 Baso # (Auto) 0.00 Sodium 140 Potassium 3.6 Chloride 105 Carbon Dioxide 29 Anion Gap 6.0 BUN 23 H D Creatinine 1.06 Est Cr Clr Drug Dosing 60.5 Est GFR ( Amer) 77.0 Est GFR (Non-Af Amer) 66.4 BUN/Creatinine Ratio 21.7 H Glucose 196 H POC Glucose Estimat Average Glucose Hemoglobin A1c Calcium 8.8 Total Bilirubin 0.4 AST 11 L ALT 17 Alkaline Phosphatase 91 Total Protein 6.8 Albumin 3.3 L Globulin 3.5 Albumin/Globulin Ratio 0.9 Bld Cult Staph aureus PCR Negative Blood Culture MRSA PCR Negative 07/17/19 07/17/19 07/17/19 07:38 07:43 11:28 WBC RBC Hgb Hct MCV MCH MCHC RDW Std Deviation RDW Coeff of Miri Plt Count MPV Immature Gran % (Auto) Neut % (Auto) Lymph % (Auto) Cuming % (Auto) Eos % (Auto) Baso % (Auto) Immature Gran # (Auto) Neut # (Auto) Lymph # (Auto) Cuming # (Auto) Eos # (Auto) Baso # (Auto) Sodium Potassium Chloride Carbon Dioxide Anion Gap BUN Creatinine Est Cr Clr Drug Dosing Est GFR ( Amer) Est GFR (Non-Af Amer) BUN/Creatinine Ratio Glucose POC Glucose 194 H 459 H* Estimat Average Glucose 117 Hemoglobin A1c 5.7 H Calcium Total Bilirubin AST ALT Alkaline Phosphatase Total Protein Albumin Globulin Albumin/Globulin Ratio Bld Cult Staph aureus PCR Blood Culture MRSA PCR 07/17/19 07/17/19 07/17/19 11:28 11:50 16:27 WBC RBC Hgb Hct MCV MCH MCHC RDW Std Deviation RDW Coeff of Miri Plt Count MPV Immature Gran % (Auto) Neut % (Auto) Lymph % (Auto) Cuming % (Auto) Eos % (Auto) Baso % (Auto) Immature Gran # (Auto) Neut # (Auto) Lymph # (Auto) Cuming # (Auto) Eos # (Auto) Baso # (Auto) Sodium Potassium Chloride Carbon Dioxide Anion Gap BUN Creatinine Est Cr Clr Drug Dosing Est GFR ( Amer) Est GFR (Non-Af Amer) BUN/Creatinine Ratio Glucose 193 H POC Glucose 240 H 135 H Estimat Average Glucose Hemoglobin A1c Calcium Total Bilirubin AST ALT Alkaline Phosphatase Total Protein Albumin Globulin Albumin/Globulin Ratio Bld Cult Staph aureus PCR Blood Culture MRSA PCR 07/17/19 20:27 WBC RBC Hgb Hct MCV MCH MCHC RDW Std Deviation RDW Coeff of Miri Plt Count MPV Immature Gran % (Auto) Neut % (Auto) Lymph % (Auto) Cuming % (Auto) Eos % (Auto) Baso % (Auto) Immature Gran # (Auto) Neut # (Auto) Lymph # (Auto) Cuming # (Auto) Eos # (Auto) Baso # (Auto) Sodium Potassium Chloride Carbon Dioxide Anion Gap BUN Creatinine Est Cr Clr Drug Dosing Est GFR ( Amer) Est GFR (Non-Af Amer) BUN/Creatinine Ratio Glucose POC Glucose 191 H Estimat Average Glucose Hemoglobin A1c Calcium Total Bilirubin AST ALT Alkaline Phosphatase Total Protein Albumin Globulin Albumin/Globulin Ratio Bld Cult Staph aureus PCR Blood Culture MRSA PCR Microbiology 07/16/19 14:25 Blood Aerobic Blood Culture - Preliminary No growth in Aerobic bottle after 24 hours. 07/16/19 14:25 Blood Anaerobic Blood Culture - Final 07/16/19 14:20 Blood Aerobic Blood Culture - Preliminary Gram positive cocci clusters 07/16/19 14:20 Blood Anaerobic Blood Culture - Final (1) Fall Encounter type: initial encounter Qualified Code(s): W19.XXXA - Unspecified fall, initial encounter
[2019-07-17] MEDS: ENOXAPARIN INJ 40 MG/0.4 ML SYR SQ SCH (20:09)
[2019-07-17] MEDS: EZETIMIBE 10 MG TABLET PO SCH (20:10)
[2019-07-18] MEDS: ALBUT/IPRATROP 3MG/0.5MG NEB 3 ML VIAL NEB SCH ×4 (01:10→19:18)
[2019-07-18] MEDS: VANCOMYCIN HCL 1,250 MG in SODIUM CHLORIDE 0.9% 250 ML IV SCH ×2 (04:06→15:34)
[2019-07-18] MEDS: methylPREDNISolone 40 MG in SYRINGE 0 ML IV SCH ×4 (05:28→22:55)
--- NOTE | 2019-07-18 07:12 | XRay Report ---
XR chest 1V portable HISTORY: 79 years-old Male CHF follow-up study in a patient with congestive heart failure COMPARISON: Chest radiograph 07/16/2019 TECHNIQUE: Portable AP view of the chest FINDINGS: Cardiac silhouette is enlarged, unchanged. Pulmonary vascular congestion with decreased pulmonary curtis ma. Left subclavian pacer is unchanged. Calcified plaque of the thoracic aortic arch. Blunting of the costophrenic angles redemonstrated. No large pleural effusion or pneumothorax. Linear retrocardiac o pacities suggest atelectasis. Degenerative changes of the shoulders and spine. IMPRESSION: 1. Cardiomegaly and pulmonary vascular congestion with improved pulmonary edema. 2. Linear retrocardiac opacities suggest atelectasis. ACT 112: Negative or not required by law. The above report was generated using voice recognition software. It may contain grammatical, syntax o r spelling errors. Electronically signed by: Thomas Ny M.D. 07/18/2019 7:11 AM
[2019-07-18 07:32] LABS: Hematocrit (blood only) 40.1 % (42-52); Hemoglobin 13.4 g/dL (14.0-18.0); Mean Corpuscular Hemoglobin 30.6 pg (25-34); Mean Corpuscular Hgb Conc 33.4 g/dL (32-36); Mean Corpuscular Volume 91.6 fL (80-100); Mean Platelet Volume 8.9 fL (7.4-10.4); Platelet Count 167 K/uL (130-400); RDW Coefficient of Variation 14.6 % (11.5-14.5); RDW Standard Deviation 49.2 fL (36.4-46.3); Red Blood Count 4.38 M/uL (4.7-6.1); White Blood Count 20.35 K/uL (4.8-10.8)
[2019-07-18 07:50] LABS: BUN Creatinine Ratio 33.8 (10-20); Calcium 8.5 mg/dl (8.5-10.1); Creatinine Clr Calc Pharmacy 64.3 ml/min; Est GFR (African American) 82.6; Est GFR (Non-African American) 71.3; Potassium 4.1 mmol/L (3.5-5.1)
[2019-07-18] MEDS: INSULIN ASPART 100 UNITS/ML 3 ML PEN SC SCH ×4 (08:19→21:07)
[2019-07-18] MEDS: LOSARTAN POTASSIUM 25 MG TAB PO SCH (08:21)
[2019-07-18] MEDS: CHOLECALCIFEROL 1,000 UNITS TAB PO SCH (08:21)
[2019-07-18] MEDS: DOXYCYCLINE HYCLATE 100 MG CAP PO SCH ×2 (08:21→21:04)
[2019-07-18] MEDS: METOPROLOL SUCC 25MG EXT REL TAB PO SCH (08:21)
[2019-07-18] MEDS: SERTRALINE HCL 100 MG TABLET PO SCH (08:21)
[2019-07-18] MEDS: GABAPENTIN 100 MG CAP PO SCH ×3 (08:22→21:04)
[2019-07-18] MEDS: ISOSORBIDE MONONITRATE 20 MG TAB PO SCH ×2 (08:22→21:06)
[2019-07-18] MEDS: ASPIRIN 81 MG ECTAB PO SCH (08:22)
[2019-07-18] MEDS: NICOTINE 14 MG/24 HR PATCH TD SCH (08:22)
[2019-07-18] MEDS: TRAZODONE HCL 50 MG TAB PO SCH (08:22)
--- NOTE | 2019-07-18 09:39 | Consultation ---
Date of Consultation July 18, 2019 Assessment & Plan (1) Lumbar spinal stenosis: Patient has appears to have an old L1 compression fracture. No acute treatment required for this. It is difficult to assess any degree of stenosis based on his recent lumbar CT. MRI would be preferred scan but he is unable to have this due to his pacemaker. Would recommend CT myelogram of the lumbar spine. This can certainly be done on an outpatient basis once he is medically stable and infection resolved. In light of his sepsis, CT myelogram is currently not an option at this time. It is difficult to tell based on current scans if he has a significant degree of stenosis that is contributing to his lower extremity weakness. I would recommend physical therapy specifically focusing on lower extremity strengthening exercises. There are no acute surgical indications currently. Supervising Physician Co-Signing Physician Notes Dr. Ludwig Joy History of Present Illness This is a 79-year-old gentleman with an extensive medical history significant for COPD, type 2 diabetes, CHF, hypertension, pacemaker, sepsis. He reports 2 days ago he was using the restroom and had 2-3 falls while in the restroom. Denies lightheadedness or dizziness. Reports that his legs gave out from underneath him. He reports he has not walked since due to restrictions placed during his hospital admission. Denies numbness bilateral lower extremities. He reports chronic back pain for many many years. Takes oxycodone at home as needed for pain control. Has seen some left buttock pain. Pain is reproduced when standing. He is most comfortable sitting or lying down. Attending Physician: Yunior Wheatley MD Allergies Allergy/AdvReac Type Severity Reaction Status Date / Time ibuprofen AdvReac Intermediate HIVES Verified 07/16/19 10:35 Home Medications Home Medications Medication Instructions Recorded Confirmed Type aspirin [Aspir-81] 81 mg PO DAILY 07/16/19 07/16/19 History cholecalciferol (vitamin D3) 5,000 unit PO DAILY 07/16/19 07/16/19 History [Vitamin D3] colesevelam 625 mg PO BID 07/16/19 07/16/19 History ezetimibe 10 mg PO HS 07/16/19 07/16/19 History hhnnpcqsmfp-eyeinvcco-uxvxlqpr 1 inh INHALATION DAILY 07/16/19 07/16/19 History [Trelegy Ellipta] furosemide 20 mg PO MOWEFR 07/16/19 07/16/19 History gabapentin 100 mg PO BIDM 07/16/19 07/16/19 History isosorbide mononitrate 20 mg PO BID 07/16/19 07/16/19 History losartan 25 mg PO DAILY 07/16/19 07/16/19 History metformin 500 mg PO QPM 07/16/19 07/16/19 History metoprolol succinate 25 mg PO DAILY 07/16/19 07/16/19 History oxycodone 2.5 mg PO DAILY PRN 07/16/19 07/16/19 History sertraline 100 mg PO DAILY 07/16/19 07/16/19 History trazodone 50 mg PO DAILY 07/16/19 07/16/19 History Patient History Medical History CAD (coronary artery disease) History of inferior IA, angioplasty right 12/1993; non-Q wave IA 3; angioplasty and stent circumflex 07/03 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 Dixon CHF (congestive heart failure) Chronic pain COPD (chronic obstructive pulmonary disease) Depression Diabetes Diabetes mellitus type 2 with complications GERD (gastroesophageal reflux disease) High cholesterol History of bladder cancer Removed by cystoscopy Dr. Martinez 02/23/2012, low-grade papillary urothelial carcinoma with squamous differentiation, per family he has not followed up with cystoscopy in 3 years History of fall Lumbar spinal stenosis Tobacco abuse Surgical History History of ankle surgery History of coronary angioplasty History of pacemaker Family History Other Coronary heart disease Social History Preferred Language: Hungarian Communication Ability: Effective Sustainability Officer Required: No Beliefs That Will Affect Care: None marital status: Current Living Situation: Spouse Other Information That Helps Us Care for You: No Feels Safe at Home: Yes Safety Concerns: Feels Safe At This Time Smoking Status: Current every day smoker Tobacco Type: cigarettes ; Age Started Using Tobacco: 14 ; packs per day: 0.5 ; Years Smoked: 66 ; Do You Dip or Chew Tobacco: No ; Second Hand Exposure: No ; Tobacco Cessation Education Requested by Patient: No Hx Alcohol Use: No Hx Substance Use: No Review of Systems Review of Systems: All systems reviewed & are unremarkable except as noted in HPI & below Physical Exam Physical Exam: Patient is seen in room 241 bed 2. He is alert and oriented x3. No obvious distress. Negative logrolling bilateral lower extremities. Negative tension signs bilateral lower extremities. Motor testing is 5 5 bilateral EHL, dorsiflexion, plantarflexion, quadriceps, hamstrings, hip flexors, hip abductor's and hip adductor's. Constitutional: WD/WN, vitals as above Eyes: normal visual parrish by confrontation ENMT: external ear and nose normal, oropharynx normal Neck: normal visual inspection Respiratory: normal respiratory effort Cardiovascular: Extremities: normal capillary refill Gastrointestinal (Abdomen): Inspection/Auscultation: abdomen normal to inspection Musculoskeletal: Extremities: strength 5/5 throughout Skin: no rashes, warm and dry Neurologic: patellar DTR's 2+ bilat, sensation intact moves all extremities Psychiatric: A+Ox3, euthymic affect Results & Data Vital Signs (Past 12 Hours) Vital Signs Temp Pulse Pulse Resp BP BP Pulse Ox 07/18/19 08:16 36.8 C 84 18 159/85 H 96 07/18/19 07:04 73 20 97 07/18/19 04:00 36.4 C L 78 20 165/88 H 94 07/18/19 01:13 67 20 100 07/18/19 01:11 77 22 100 07/18/19 00:00 75 07/17/19 23:35 36.4 C L 70 17 116/69 98 07/17/19 22:21 75 27 H 97 Diagnostic Findings [phone] CT Scan Report Patient: FEDERICO GUAJARDO CAdmit Date: 07/16/19 MR#: [id number]: [address] Acct ID:[id number]: Date: 1940City Zip: [place] [address] Age: 79Location: ED Sex: M Room/Bed: Att Phy:Diagnosis: FALLS Kayla Phy: Larry Brariga M.D.Service Date: 07/16/19 [facility] Phy:Interpreting Phy: Kerwin Avery MD Admit Phy: Ordering Phy: Bryan Cruz M.D. cc: ~ CT OF THE LUMBAR SPINE CLINICAL HISTORY: fall, back pain COMPARISON STUDY: No previous studies for comparison. TECHNIQUE: Axial images of the lumbar spine were obtained. Sagittal and coronal reconstructions were viewed. Automated exposure control was utilized for the study. A dose lowering technique was utilized adhering to the principles of ALARA. FINDINGS: Please note that the CT of the abdomen and pelvis will be reported separately. Mild levoscoliosis of the lumbar spine is noted. There is severe multilevel disc space narrowing with osteophytosis and vacuum disc phenomenon. There is also severe multilevel facet arthrosis. No acute fracture is noted. Moderate L1 compression deformity is likely old. Paravertebral soft tissues are unremarkable. Central canal neural foramen are suboptimally assessed given CT. IMPRESSION: 1. No acute lumbar spine fracture or subluxation. 2. Moderate L1 compression deformity which is likely old. 3. Severe multilevel degenerative disc disease and facet arthrosis. 4. Mild levoscoliosis of the lumbar spine. Electronically signed by: Kerwin Avery M.D. 07/16/2019 11:49 AM Dictated: 07/16/19 1145 Transcribed:
--- NOTE | 2019-07-18 10:20 | Cardiology Consultation ---
Date of Consultation July 18, 2019 Assessment & Plan (1) SOB (shortness of breath): The patient does not examine his volume overloaded I personally reviewed his chest x-ray and do not believe it is consistent with a vascular congestion pattern more likely a developing infiltrate Laboratory studies also support the fact that he is likely volume depleted I would not diurese any further infected recommend IV fluid I would recommend maintaining him on his outpatient metoprolol, losartan, aspirin, Zetia and Imdur I would recommend he follow-up with his primary auto body painter after discharge No further cardiac testing or intervention is necessary at this time (2) Ambulatory dysfunction: To be seen by orthopedics (3) HTN (hypertension): Controlled, would maintain outpatient medical regimen (4) Cardiac pacemaker in situ: Follow-up for regular scheduled device checks as per primary auto body painter (5) COPD exacerbation: Active Will defer treatment to the primary team (6) CAD (coronary artery disease): Stable History of Present Illness Reason for Consultation: Shortness of breath and questionable CHF Requesting Physician: Dr. Dan Attending Physician: Yunior Wheatley MD History of Present Illness It was my pleasure to see Mr. Wren in consultation today July 18, 2019. He is a very pleasant 79-year-old gentleman who normally follows with Dr. Dixon of [place] [facility] and is not known to our cardiology group. He presented to [facility] on 07/17/2019 with complaints of recurrent falls. He states his legs have been very weak and are now regularly giving out on him. Luckily is only had some slight trauma to his right knee but is not hit his head. He denies any lightheadedness, dizziness or syncope he states his legs just give out. He also states that over the last 3 weeks has been having increasing shortness of breath that significantly worsened 1 day prior to presentation. He states that at first he was having a hard time catching his breath with exertion but now he is short of breath all the time. He did start wearing his oxygen more at home with minimal relief. He has been compliant with all of his home medications. He denies any chest pain, palpitations, lightheadedness, dizziness or syncope. He is also been having a nonproductive cough Allergies Allergy/AdvReac Type Severity Reaction Status Date / Time ibuprofen AdvReac Intermediate HIVES Verified 07/16/19 10:35 Home Medications Home Medications Medication Instructions Recorded Confirmed Type aspirin [Aspir-81] 81 mg PO DAILY 07/16/19 07/16/19 History cholecalciferol (vitamin D3) 5,000 unit PO DAILY 07/16/19 07/16/19 History [Vitamin D3] colesevelam 625 mg PO BID 07/16/19 07/16/19 History ezetimibe 10 mg PO HS 07/16/19 07/16/19 History vhicxbxlboa-cyhhwneba-eynrrtlc 1 inh INHALATION DAILY 07/16/19 07/16/19 History [Trelegy Ellipta] furosemide 20 mg PO MOWEFR 07/16/19 07/16/19 History gabapentin 100 mg PO BIDM 07/16/19 07/16/19 History isosorbide mononitrate 20 mg PO BID 07/16/19 07/16/19 History losartan 25 mg PO DAILY 07/16/19 07/16/19 History metformin 500 mg PO QPM 07/16/19 07/16/19 History metoprolol succinate 25 mg PO DAILY 07/16/19 07/16/19 History oxycodone 2.5 mg PO DAILY PRN 07/16/19 07/16/19 History sertraline 100 mg PO DAILY 07/16/19 07/16/19 History trazodone 50 mg PO DAILY 07/16/19 07/16/19 History Patient History Medical History CAD (coronary artery disease) History of inferior PA, angioplasty right 12/1993; non-Q wave PA 3; angioplasty and stent circumflex 07/03 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 Dixon CHF (congestive heart failure) Chronic pain COPD (chronic obstructive pulmonary disease) Depression Diabetes Diabetes mellitus type 2 with complications GERD (gastroesophageal reflux disease) High cholesterol History of bladder cancer Removed by cystoscopy Dr. 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 Beliefs That Will Affect Care: None marital status: Current Living Situation: Spouse Other Information That Helps Us Care for You: No Feels Safe at Home: Yes Safety Concerns: Feels Safe At This Time Smoking Status: Current every day smoker Tobacco Type: cigarettes ; Age Started Using Tobacco: 14 ; packs per day: 0.5 ; Years Smoked: 66 ; Do You Dip or Chew Tobacco: No ; Second Hand Exposure: No ; Tobacco Cessation Education Requested by Patient: No Hx Alcohol Use: No Hx Substance Use: No Review of Systems Review of Systems: All systems reviewed & are unremarkable except as noted in HPI & below Physical Exam Physical Exam: General: Awake, alert and oriented x 3. No acute distress. HEENT: Normocephalic, atraumatic. Pupils equal, round and reactive to light and accommodation. Extraocular muscles are intact. Anicteric sclera. Moist mucous membranes. Neck: No JVD. No bruit. Cardiovascular: Regular. Positive S-4. Normal S-1 and S-2. No S-3. No murmurs or rubs. Pulmonary: Diffuse rhonchi more pronounced in the left lower lobe, no rales Abdomen: Bowel sounds x 4, soft. No rebound, guarding or tenderness. No organomegaly. Extremities: No clubbing, cyanosis or edema. +2 pedal pulses bilaterally. Skin: Warm and dry. Results & Data Vital Signs (Past 12 Hours) Vital Signs Temp Pulse Pulse Resp BP BP Pulse Ox 07/18/19 08:16 36.8 C 84 18 159/85 H 96 07/18/19 07:04 73 20 97 07/18/19 04:00 36.4 C L 78 20 165/88 H 94 07/18/19 01:13 67 20 100 07/18/19 01:11 77 22 100 07/18/19 00:00 75 07/17/19 23:35 36.4 C L 70 17 116/69 98 07/17/19 22:21 75 27 H 97 Laboratory Results Laboratory Results - last 24 hr 07/16/19 07/17/19 07/17/19 14:20 07:43 11:28 WBC RBC Hgb Hct MCV MCH MCHC RDW Std Deviation RDW Coeff of Miri Plt Count MPV Sodium Potassium Chloride Carbon Dioxide Anion Gap BUN Creatinine Est Cr Clr Drug Dosing Est GFR ( Amer) Est GFR (Non-Af Amer) BUN/Creatinine Ratio Glucose POC Glucose 194 H 459 H* Calcium Bld Cult Staph aureus PCR Negative Blood Culture MRSA PCR Negative 07/17/19 07/17/19 07/17/19 11:28 11:50 16:27 WBC RBC Hgb Hct MCV MCH MCHC RDW Std Deviation RDW Coeff of Miri Plt Count MPV Sodium Potassium Chloride Carbon Dioxide Anion Gap BUN Creatinine Est Cr Clr Drug Dosing Est GFR ( Amer) Est GFR (Non-Af Amer) BUN/Creatinine Ratio Glucose 193 H POC Glucose 240 H 135 H Calcium Bld Cult Staph aureus PCR Blood Culture MRSA PCR 07/17/19 07/18/19 07/18/19 20:27 07:00 07:00 WBC 20.35 H RBC 4.38 L Hgb 13.4 L Hct 40.1 L MCV 91.6 MCH 30.6 MCHC 33.4 RDW Std Deviation 49.2 H RDW Coeff of Miri 14.6 H Plt Count 167 MPV 8.9 Sodium 137 Potassium 4.1 Chloride 106 Carbon Dioxide 28 Anion Gap 3.0 BUN 34 H Creatinine 1.00 Est Cr Clr Drug Dosing 64.3 Est GFR ( Amer) 82.6 Est GFR (Non-Af Amer) 71.3 BUN/Creatinine Ratio 33.8 H Glucose 184 H POC Glucose 191 H Calcium 8.5 Bld Cult Staph aureus PCR Blood Culture MRSA PCR 07/18/19 07:24 WBC RBC Hgb Hct MCV MCH MCHC RDW Std Deviation RDW Coeff of Miri Plt Count MPV Sodium Potassium Chloride Carbon Dioxide Anion Gap BUN Creatinine Est Cr Clr Drug Dosing Est GFR ( Amer) Est GFR (Non-Af Amer) BUN/Creatinine Ratio Glucose POC Glucose 177 H Calcium Bld Cult Staph aureus PCR Blood Culture MRSA PCR Medications Administered Current Inpatient Medications Acetaminophen (Tylenol) 650 mg PO Q4H PRN PRN Reason: Pain or Fever Stop: 08/15/19 16:30 Al Hydrox/Mg Hydrox/Simethicone (Maalox) 15 ml PO Q4H PRN PRN Reason: Dyspepsia Stop: 08/15/19 16:30 Albuterol (Duoneb) 3 ml NEB Q6R [facility] Stop: 08/16/19 02:59 Last Admin: 07/18/19 07:04 Dose: 3 ml Documented by: Albuterol (Duoneb) 3 ml NEB Q2H PRN PRN Reason: SOB/WHEEZING Stop: 08/16/19 01:24 Aspirin (Ecotrin Ectab) 81 mg PO DAILY [facility] Stop: 08/16/19 08:59 Last Admin: 07/18/19 08:22 Dose: 81 mg Documented by: Dextrose (Dextrose 50%) 25 - 50 ml IV UD PRN; Protocol PRN Reason: Hypoglycemia Protocol Stop: 08/15/19 16:30 Doxycycline Hyclate (Vibramycin) 100 mg PO BID [facility]; Protocol Stop: 07/23/19 16:30 Last Admin: 07/18/19 08:21 Dose: 100 mg Documented by: Ezetimibe (Zetia) 10 mg PO HS [facility] Stop: 08/15/19 20:59 Last Admin: 07/17/19 20:10 Dose: 10 mg Documented by: Enoxaparin Sodium (Lovenox) 40 mg SQ Q24H [facility] Stop: 08/15/19 20:59 Last Admin: 07/17/19 20:09 Dose: 40 mg Documented by: Gabapentin (Neurontin) 100 mg PO TID [facility] Stop: 08/15/19 20:59 Last Admin: 07/18/19 08:22 Dose: 100 mg Documented by: Glucagon (Glucagen) 1 mg SQ UD PRN; Protocol PRN Reason: Hypoglycemia Protocol Stop: 08/15/19 16:30 Glucose (Dex4 Glucose) 4 - 8 tabs PO UD PRN; Protocol PRN Reason: Hypoglycemia Protocol Stop: 08/15/19 16:30 Glucose (Glucose 40%) 15 - 30 gm PO UD PRN; Protocol PRN Reason: Hypoglycemia Protocol Stop: 08/15/19 16:30 Methylprednisolone 40 mg/ (Syringe) 0.64 mls @ 1.5 mls/min IV Q6H [facility] Stop: 08/15/19 23:29 Last Admin: 07/18/19 05:28 Dose: 1.5 mls/min Documented by: Ceftriaxone Sodium 2,000 mg/ (Dextrose) 70 mls @ 140 mls/hr IV Q24H [facility] Stop: 07/23/19 15:59 Last Infusion: 07/17/19 17:52 Dose: Infused Documented by: Vancomycin HCl 1,250 mg/ (Sodium Chloride) 275 mls @ 125 mls/hr IV Q12H [facility] Stop: 08/01/19 03:59 Last Infusion: 07/18/19 07:28 Dose: Infused Documented by: Insulin Aspart (Novolog Flexpen) 0 units SC ACHS [facility] Stop: 08/15/19 16:30 Last Admin: 07/18/19 08:19 Dose: 9 units Documented by: Ioversol (Optiray 320 125ml) 119 ml IV ONCE PRN PRN Reason: Interaction Checking Stop: 07/20/19 11:09 Last Admin: 07/16/19 11:11 Dose: 119 ml Documented by: Isosorbide Mononitrate (Ismo) 20 mg PO BID [facility] Stop: 08/15/19 20:59 Last Admin: 07/18/19 08:22 Dose: 20 mg Documented by: Losartan Potassium (Cozaar) 25 mg PO DAILY [facility] Stop: 08/16/19 08:59 Last Admin: 07/18/19 08:21 Dose: 25 mg Documented by: Magnesium Hydroxide (Milk Of Magnesia) 30 ml PO Q12H PRN PRN Reason: Constipation Stop: 08/15/19 16:30 Metoprolol Succinate (Toprol Xl) 25 mg PO DAILY [facility] Stop: 08/16/19 08:59 Last Admin: 07/18/19 08:21 Dose: 25 mg Documented by: Miscellaneous (Carbohydrates For Hypoglycemia) 15 - 30 gm PO UD PRN PRN Reason: Hypoglycemia Protocol Stop: 08/15/19 16:30 Miscellaneous (Order Awaiting Action) 1 ea N/A QS [facility] Stop: 08/16/19 00:00 Last Admin: 07/18/19 08:20 Dose: Not Given Documented by: Miscellaneous (Order Awaiting Action) 1 ea N/A QS [facility] Stop: 08/16/19 00:00 Last Admin: 07/18/19 08:20 Dose: Not Given Documented by: Miscellaneous (Remove Nicoderm Patch) 1 ea N/A DAILY@0859 [facility] Stop: 08/16/19 08:58 Last Admin: 07/18/19 08:21 Dose: 1 ea Documented by: Miscellaneous Information (Pharmacy Consult) 1 ea N/A UD PRN PRN Reason: Consult Stop: 08/15/19 14:09 Miscellaneous Information (Consult) 1 ea N/A UD PRN PRN Reason: Consult Stop: 08/16/19 14:31 Nicotine (Nicoderm Cq) 14 mg TD QAM [facility] Stop: 08/16/19 08:59 Last Admin: 07/18/19 08:22 Dose: 14 mg Documented by: Ondansetron HCl (Zofran) 4 mg IV Q6H PRN PRN Reason: Nausea Stop: 08/15/19 16:30 Oxycodone HCl (Roxicodone Immediate Rel) 5 mg PO DAILY PRN PRN Reason: Pain Stop: 07/30/19 16:30 Polyethylene Glycol (Miralax Powder Packet) 17 gm PO DAILY PRN PRN Reason: Constipation Stop: 08/15/19 16:30 Sertraline HCl (Zoloft) 100 mg PO DAILY [facility] Stop: 08/16/19 08:59 Last Admin: 07/18/19 08:21 Dose: 100 mg Documented by: Trazodone HCl (Desyrel) 50 mg PO DAILY [facility] Stop: 08/16/19 08:59 Last Admin: 07/18/19 08:22 Dose: 50 mg Documented by: Vitamin D (Vitamin D3) 5,000 units PO DAILY [facility] Stop: 08/16/19 08:59 Last Admin: 07/18/19 08:21 Dose: 5,000 units Documented by:
--- NOTE | 2019-07-18 10:31 | Infectious Disease Consult ---
Date of Consultation July 18, 2019 Assessment & Plan (1) Positive blood culture: ? contaminant, no clear source knees do not appear to be infected. will maintain IV abx pending additional culture data. will repeat blood cultures, If repeat cultures + as well, may benefit from aspiration. echo negative. will follow. History of Present Illness Attending Physician: Yunior Wheatley MD pt admitted after fall at home, increased weakness over last 2-3 days, denies f/c at home. Had ct chest/abd/pelvis in ER, negative, CXR with edema only,no infiltrate. having b/l knee pain, denies trauma. x ray with moderate b/l effusions. procal <0.05, UA negative, Flu negative. blood cultures done in ER on 07/16 - 08/02 + gpc clusters. Echo negative. He is on rocephin and vanco and IV steroid, tolerating well. wbc 8 in ER, now 20. creat 1.0 no knee pain currenlty. no cp, sob, cough, no abd pain, no n/v/d. no gu symptoms. Allergies Allergy/AdvReac Type Severity Reaction Status Date / Time ibuprofen AdvReac Intermediate HIVES Verified 07/16/19 10:35 Home Medications Home Medications Medication Instructions Recorded Confirmed Type aspirin [Aspir-81] 81 mg PO DAILY 07/16/19 07/16/19 History cholecalciferol (vitamin D3) 5,000 unit PO DAILY 07/16/19 07/16/19 History [Vitamin D3] colesevelam 625 mg PO BID 07/16/19 07/16/19 History ezetimibe 10 mg PO HS 07/16/19 07/16/19 History tghxuqoeypb-yccvirqtd-ckwdoqft 1 inh INHALATION DAILY 07/16/19 07/16/19 History [Trelegy Ellipta] furosemide 20 mg PO MOWEFR 07/16/19 07/16/19 History gabapentin 100 mg PO BIDM 07/16/19 07/16/19 History isosorbide mononitrate 20 mg PO BID 07/16/19 07/16/19 History losartan 25 mg PO DAILY 07/16/19 07/16/19 History metformin 500 mg PO QPM 07/16/19 07/16/19 History metoprolol succinate 25 mg PO DAILY 07/16/19 07/16/19 History oxycodone 2.5 mg PO DAILY PRN 07/16/19 07/16/19 History sertraline 100 mg PO DAILY 07/16/19 07/16/19 History trazodone 50 mg PO DAILY 07/16/19 07/16/19 History Patient History Medical History CAD (coronary artery disease) History of inferior NC, angioplasty right 12/1993; non-Q wave [place] 3; angioplasty and stent circumflex 07/03 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 Dixon CHF (congestive heart failure) Chronic pain COPD (chronic obstructive pulmonary disease) Depression Diabetes Diabetes mellitus type 2 with complications GERD (gastroesophageal reflux disease) High cholesterol History of bladder cancer Removed by cystoscopy Dr. 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 Beliefs That Will Affect Care: None marital status: Current Living Situation: Spouse Other Information That Helps Us Care for You: No Feels Safe at Home: Yes Safety Concerns: Feels Safe At This Time Smoking Status: Current every day smoker Tobacco Type: cigarettes ; Age Started Using Tobacco: 14 ; packs per day: 0.5 ; Years Smoked: 66 ; Do You Dip or Chew Tobacco: No ; Second Hand Exposure: No ; Tobacco Cessation Education Requested by Patient: No Hx Alcohol Use: No Hx Substance Use: No Review of Systems Review of Systems: All systems reviewed & are unremarkable except as noted in HPI & below Physical Exam Constitutional: WD/WN, vitals as above Eyes: PERRL, conjunctivae normal, anicteric sclerae ENMT: external ear and nose normal, oropharynx normal Neck: normal visual inspection Respiratory: normal respiratory effort, lungs clear to auscultation Cardiovascular: RRR, no murmur, no edema Gastrointestinal (Abdomen): normal bowel sounds, soft, nontender, no hepatosplenomegaly Musculoskeletal: no cyanosis or clubbing, extremities motor strength 5/5 Skin: no rashes, warm and dry b/l knees without swelling, warmth, tenderness Psychiatric: A+Ox3, euthymic affect Results & Data Vital Signs (Past 12 Hours) Vital Signs Temp Pulse Pulse Resp BP BP Pulse Ox 07/18/19 08:16 36.8 C 84 18 159/85 H 96 07/18/19 07:04 73 20 97 07/18/19 04:00 36.4 C L 78 20 165/88 H 94 07/18/19 01:13 67 20 100 07/18/19 01:11 77 22 100 07/18/19 00:00 75 07/17/19 23:35 36.4 C L 70 17 116/69 98 Laboratory Results Microbiology 07/16/19 14:25 Blood Aerobic Blood Culture - Preliminary No growth in Aerobic bottle after 24 hours. 07/16/19 14:25 Blood Anaerobic Blood Culture - Final 07/16/19 14:20 Blood Aerobic Blood Culture - Preliminary Gram positive cocci clusters 07/16/19 14:20 Blood Anaerobic Blood Culture - Final PG Care Time/CCT Total # of Minutes Spent Total Time Spent with Patient: Total time spent is greater than 50% in coordination of care (as documented) at patient's floor/unit and/or counseling patient:
--- NOTE | 2019-07-18 12:59 | Neurology Consultation ---
Date of Consultation July 18, 2019 Assessment & Plan (1) Ambulatory dysfunction: 1. would repeat CT head- possible stroke patient does have a right pronator drift no history of stroke 2. pacemaker- could check to see if an MRI would be possible some pacers are compatible 3. currently on aspirin 81 mg 4. no infectious source found at this point 5. blurred vision - may need ophthalmology exam 6. PT/OT for evaluation 7. optimize HTN, HLD, DM LDL<70 (2) Weakness: as above (3) SOB (shortness of breath): 1. smoking cessation advised 2. gasping breaths at night- sleep study if not already done 3. continue O2 for now 4. TTE- 60-65% 5. pacemaker interrogation if not recently done Supervising Physician Co-Signing Physician Notes Patient was seen and examined. at bedside. Agree with Estephania Bains as noted below. Mr. Wren is a current and chronic smoker with COPD and cardiac pacemaker on ASA admitted with asthenia. CT head reviewed and shows atrophy. He denies any known history of stroke or focal weakness. reports he is unable to walk. CK is normal. On examine no focal weakness noted in lower extremities. Hip flexion appears strong. EHL weakness bilateral but would be expected in chronic DM. Face is symmetric. Has right upper extremity pronator drift and ataxia which may be suggestive lacunar infarct. Possible right bicep weakness 4+/5 compared to left. Triceps appear symmetric. Toes down going. No clonus. Reflexes attenuated. Continue aspirin for now. Repeat CT head tomorrow morning. PT recommendations for rehab needs. 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 He also was complaining of SOB and cough x 2 weeks. His is at bedside and she states he got out of bed to smoke a cigarette in the garage. When he came back he fell in the bathroom and couldn't get up. He had no LOC and didn't hit his head. He is a current 1/2 ppd smoker which started at age 14. states he wears O2 at night 2 L but often she hears him wake with gasping breaths. He states he has ongoing weakness in his LLE due to spinal stenosis however his right LE is now weak after the fall. He is also complaining of blurred vision both near and far. She also states about 2 weeks ago he was stating the TV was talking to him and that lasted several days. unclear if any new medication were started. denies CP, abdominal pain, N, V, new bowel or bladder issues, slurred speech, swallowing issues. +increased LE weakness R>L, blurred vision Allergies Allergy/AdvReac Type Severity Reaction Status Date / Time ibuprofen AdvReac Intermediate HIVES Verified 07/16/19 10:35 Home Medications Home Medications Medication Instructions Recorded Confirmed Type aspirin [Aspir-81] 81 mg PO DAILY 07/16/19 07/16/19 History cholecalciferol (vitamin D3) 5,000 unit PO DAILY 07/16/19 07/16/19 History [Vitamin D3] colesevelam 625 mg PO BID 07/16/19 07/16/19 History ezetimibe 10 mg PO HS 07/16/19 07/16/19 History nyvaghpkxke-lvwbgghcd-zdajjdxj 1 inh INHALATION DAILY 07/16/19 07/16/19 History [Trelegy Ellipta] furosemide 20 mg PO MOWEFR 07/16/19 07/16/19 History gabapentin 100 mg PO BIDM 07/16/19 07/16/19 History isosorbide mononitrate 20 mg PO BID 07/16/19 07/16/19 History losartan 25 mg PO DAILY 07/16/19 07/16/19 History metformin 500 mg PO QPM 07/16/19 07/16/19 History metoprolol succinate 25 mg PO DAILY 07/16/19 07/16/19 History oxycodone 2.5 mg PO DAILY PRN 07/16/19 07/16/19 History sertraline 100 mg PO DAILY 07/16/19 07/16/19 History trazodone 50 mg PO DAILY 07/16/19 07/16/19 History Patient History Medical History CAD (coronary artery disease) History of inferior VT, angioplasty right 12/1993; non-Q wave VT 3; angioplasty and stent circumflex 07/03 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 Dixon CHF (congestive heart failure) Chronic pain COPD (chronic obstructive pulmonary disease) Depression Diabetes Diabetes mellitus type 2 with complications GERD (gastroesophageal reflux disease) High cholesterol History of bladder cancer Removed by cystoscopy Dr. Martinez 02/23/2012, low-grade papillary urothelial carcinoma with squamous differentiation, per family he has not followed up with cystoscopy in 3 years History of fall Lumbar spinal stenosis Tobacco abuse Surgical History History of ankle surgery History of coronary angioplasty History of pacemaker Family History Other Coronary heart disease Social History Preferred Language: Romansh Communication Ability: Effective Asset Protection Lead Required: No Beliefs That Will Affect Care: None marital status: Current Living Situation: Spouse Other Information That Helps Us Care for You: No Feels Safe at Home: Yes Safety Concerns: Feels Safe At This Time Smoking Status: Current every day smoker Tobacco Type: cigarettes ; Age Started Using Tobacco: 14 ; packs per day: 0.5 ; Years Smoked: 66 ; Do You Dip or Chew Tobacco: No ; Second Hand Exposure: No ; Tobacco Cessation Education Requested by Patient: No Hx Alcohol Use: No Hx Substance Use: No Physical Exam Physical Exam: Physical Exam: Constitutional: appearance nourished, obese Ears, Nose, Mouth and Throat: mucous membranes moist, no injection and skin normal, eyes normal Cardiovascular: normal S-1 and S-2 and regular rate and rhythm Respiratory: course breath sounds with wheezing Musculoskeletal: mild peripheral edema Skin: no stigmata of neurocutaneous disease noted and normal and intact Eyes: extraocular muscles intact (EOMI) and pupils equal, round and reactive to light (PERRL), gross peripheral parrish intact NEUROLOGIC EXAMINATION: Mental status: Alert and interactive Oriented to full date and location Oriented to person Speech fluent with no evidence of aphasia Cranial Nerves Normal findings for Cranial Nerves II - XII Reflexes: Deep tendon reflexes were symmetrical and graded 2/5. Sensory: no sensory deficits, light cool vibration, GT proprioception intact Coordination: finger to nose no bi pass, slight essential tremor bilaterally Gait/Stance: Posture sitting up in bed Motor: positive pronator drift of out stretched arms with eyes closed on right. Strength: hand hospice nurse biceps triceps 5/5, hip flex 4+/5 bilaterally patellar/plantar 5/5 bilaterally Results & Data Vital Signs (Past 12 Hours) Vital Signs Temp Pulse Pulse Resp BP Pulse Ox Pulse Ox 07/18/19 12:05 36.4 C L 62 22 95 07/18/19 08:16 36.8 C 84 18 159/85 H 96 07/18/19 08:00 82 94 07/18/19 07:04 73 20 97 07/18/19 04:00 36.4 C L 78 20 165/88 H 94 07/18/19 01:13 67 20 100 07/18/19 01:11 77 22 100 Laboratory Results Abnormal lab results 07/17/19 07/17/19 07/18/19 Range/Units 16:27 20:27 07:00 WBC 20.35 H (4.8-10.8) K/uL RBC 4.38 L (4.7-6.1) M/uL Hgb 13.4 L (14.0-18.0) g/dL Hct 40.1 L (42-52) % RDW Std Deviation 49.2 H (36.4-46.3) fL RDW Coeff of Miri 14.6 H (11.5-14.5) % BUN (7-18) mg/dl BUN/Creatinine Ratio (10-20) Glucose (70-99) mg/dl POC Glucose 135 H 191 H (70-99) 07/18/19 07/18/19 07/18/19 Range/Units 07:00 07:24 11:24 WBC (4.8-10.8) K/uL RBC (4.7-6.1) M/uL Hgb (14.0-18.0) g/dL Hct (42-52) % RDW Std Deviation (36.4-46.3) fL RDW Coeff of Miri (11.5-14.5) % BUN 34 H (7-18) mg/dl BUN/Creatinine Ratio 33.8 H (10-20) Glucose 184 H (70-99) mg/dl POC Glucose 177 H 262 H (70-99) Diagnostic Findings CT chest-There is no evidence of pulmonary embolus in the main, lobar, or segmental pulmonary arteries. Cardiomegaly and cardiac pacemaker. Diffuse intralobular septal thickening suggests a component of congestive failure. Clinical correlation be required. Trace right pleural effusion. Emphysema. CT A/P- No acute intra-abdominal or intrapelvic abnormality identified. 2. 25% anterior endplate compression deformity of the L1 vertebral body is technically age-indeterminate however likely chronic. No definite acute fracture identified. 3. Partial distention of the urinary bladder with mild wall thickening. There are a few calcifications noted along the left aspect of the urinary bladder wall. Correlation with cystoscopy should be considered to exclude underlying partially calcified mucosal lesion(s). Nonobstructing bilateral nephrolithiasis. Colonic diverticulosis without acute diverticulitis. Additional findings as above. CT head-No acute intracranial hemorrhage, midline shift, intracranial mass, hydrocephalus, territorial ischemia or abnormal extra-axial collection. Age- related involutional changes with ex vacuo ventricular likely. Patchy white matter hypodensities suggest chronic microvascular ischemic disease. The calvarium is intact. Trace mastoid effusions. Mild mucoperiosteal thickening of the maxillary and ethmoid sinuses. Soft tissues and orbits are unremarkable. CXR-No acute lumbar spine fracture or subluxation. Moderate L1 compression deformity which is likely old. Severe multilevel degenerative disc disease and facet arthrosis. Mild levoscoliosis of the lumbar spine. TTE- EF 60-65%
--- NOTE | 2019-07-18 15:33 | Consultation Report ---
DATE OF CONSULTATION: 07/18/2019 HISTORY: The patient is a 79-year-old male who presents with history of having some confusion, most recently with multiple falls, complaints of leg pain initially started on his left leg. Has a long history of degenerative disc disease with spinal stenosis as well as DJD left knee. His knee examination of left and right knee are both benign. No evidence of ligamentous instability is noted. Left knee has moderate arthritis with history of an x-ray examination consistent with that of previous subchondroplasty involving both femur and tibia. No evidence of ligamentous instability or infection is noted on clinical examination. His right knee exam is otherwise ligamentously stable. Has mild to moderate DJD, no fracture noted on x-rays. ASSESSMENT: Spinal stenosis with weakness lower extremity, undetermined etiology. History of previous left knee subchondroplasty tibia and femur with mild to moderate DJD bilateral knees. At this point, no orthopedic as far as surgical in nature. We will follow with you as needed. MTDD
[2019-07-18] MEDS: cefTRIAXone SODIUM 2,000 MG in DEXTROSE 5% 50 ML IV SCH (15:35)
--- NOTE | 2019-07-18 17:09 | Hospitalist Progress Note ---
Date of Service July 18, 2019 Assessment & Plan (1) CHF (congestive heart failure): Chest x-ray showed pulmonary vascular congestion. Echo shows normal systolic function, grade I diastolic dysfunction, apical wall motion abnormality possibly secondary to pacemaker activation. Acute on chronic left ventricular diastolic heart failure. Volume status improved On Lasix 20mg X3/week Appreciate Cardiology Input Needs follow up with Cardiology upon discharge (2) CAD (coronary artery disease): EKG shows paced rhythm. Echo shows normal systolic function, apical wall motion abnormality possibly secondary to pacemaker activation. Continue aspirin, losartan, nitrates, Zetia (3) Cardiac pacemaker in situ: S/P pacemaker. Monitor (4) COPD (chronic obstructive pulmonary disease): Severe COPD. Ongoing Tobacco Use Counselled t quit smoking Taper IV steroids as able Continue nebs, supplemental Oxygen, abx (5) HTN (hypertension): Continue losartan, Isosorbide. (6) Diabetes mellitus type 2 with complications: DM II Was on metformin. Hgb A1C 5.7. Hold PO meds for now Continue Insulin coverage while hospitalized Monitor BGs (7) Fall: H/O several recent falls. Ambulatory dysfunction CT LS spine shoed L1 compression deformity, indeterminate age. X-ray knees show moderate effusions, ? secondary to trauma. Appreciate Orthopedics Input PT/OT (8) Ambulatory dysfunction: lumbar spinal stenosis. DJD B/L Knees No cord compression seen on CT, but imaging limited. PT / OT evals. Fall precautions. Consult Ortho Spine and Neuro Input (9) Lumbar spinal stenosis: As noted above. (10) Diplopia: Intermittent diplopia and blurred vision. No acute findings on CT. Cannot do MRI due to pacemaker. Appreciate Neurology Input Needs Ophthalmology eval as outpatient (11) Positive blood culture: 1 of 2 blood cultures growing coagulase-negative staph Likely contamination Repeat blood cultures pending Plan to discontinue IV vancomycin if repeat blood cultures remain negative Appreciate ID input (12) Tobacco abuse: Smoking cessation counseling. Nicotine replacement. (13) DVT prophylaxis: SQ Lovenox (14) Discharge planning issues: To be determined Internal Medicine follow-up with Dr. Barriga. Subjective Patient is seen and examined at bedside No significant improvement of shortness of breath, cough subjectively Denies any chest pain, dizziness, nausea, abdominal pain Reports leg weakness No family at bedside Offers no other complaints Review of Systems Review of Systems: All systems reviewed & are unremarkable except as noted in HPI & below Physical Exam Physical Exam: Physical Exam: Vitals signs as noted above General Appearance:Moderately built and nourished, no apparent distress Head: normocephalic, Atraumatic Eyes: normal inspection, EOMI Neck: supple, Trachea midline Respiratory/Chest: Decreased breath sounds, + B/L wheezing CTA Cardiovascular: S1, S2, No murmur Abdomen/GI:Soft, Non tender, Bowel sounds present Extremities/Musculoskelatal:normal inspection, no edema Neurologic/Psych:AAOX3, grossly no focal neurological deficits Skin: normal color, warm Results & Data Vital Signs (Past 12 Hours) Vital Signs Temp Pulse Pulse Resp BP Pulse Ox Pulse Ox 07/18/19 16:00 92 07/18/19 15:20 37.1 C 71 18 95/50 L 97 07/18/19 14:49 07/18/19 13:33 74 20 94 07/18/19 12:05 36.4 C L 62 22 95 07/18/19 08:16 36.8 C 84 18 159/85 H 96 07/18/19 08:00 82 94 07/18/19 07:04 73 20 97 Pulse Ox Pulse Ox 07/18/19 16:00 07/18/19 15:20 07/18/19 14:49 96 95 07/18/19 13:33 07/18/19 12:05 07/18/19 08:16 07/18/19 08:00 07/18/19 07:04 Laboratory Results Short CBC 07/18/19 Range/Units 07:00 WBC 20.35 H (4.8-10.8) K/uL Hgb 13.4 L (14.0-18.0) g/dL Hct 40.1 L (42-52) % Plt Count 167 (130-400) K/uL BMP 07/18/19 07:00 Sodium 137 Potassium 4.1 Chloride 106 Carbon Dioxide 28 BUN 34 H Creatinine 1.00 Glucose 184 H Calcium 8.5 (1) Fall Encounter type: initial encounter Qualified Code(s): W19.XXXA - Unspecified fall, initial encounter
[2019-07-18] MEDS ORDERED: OXYMETAZOLINE 0.05% 30 ML BTL PRN (18:03)
[2019-07-18] MEDS ORDERED: SODIUM CHLORIDE 0.9% 500 ML IV ONE (18:07)
[2019-07-18] MEDS: EZETIMIBE 10 MG TABLET PO SCH (21:04)
[2019-07-18] MEDS: ENOXAPARIN INJ 40 MG/0.4 ML SYR SQ SCH (21:05)
[2019-07-19] MEDS: ALBUT/IPRATROP 3MG/0.5MG NEB 3 ML VIAL NEB SCH ×4 (01:19→19:42)
[2019-07-19] MEDS ORDERED: VANCOMYCIN TROUGH ONE (03:30)
[2019-07-19 03:46] LABS: BUN Creatinine Ratio 42.7 (10-20); Calcium 8.4 mg/dl (8.5-10.1); Creatinine Clr Calc Pharmacy 67.3 ml/min; Est GFR (African American) 86.8; Est GFR (Non-African American) 74.9; Magnesium 2.2 mg/dl (1.8-2.4); Potassium 4.5 mmol/L (3.5-5.1)
[2019-07-19] MEDS: VANCOMYCIN HCL 1,250 MG in SODIUM CHLORIDE 0.9% 250 ML IV SCH ×2 (04:07→17:26)
[2019-07-19] MEDS: methylPREDNISolone 40 MG in SYRINGE 0 ML IV SCH ×3 (05:31→20:47)
[2019-07-19] MEDS ORDERED: MIDODRINE HCL 2.5 MG TAB PO SCH (08:00)
[2019-07-19] MEDS: INSULIN ASPART 100 UNITS/ML 3 ML PEN SC SCH ×4 (08:40→20:49)
[2019-07-19] MEDS: LOSARTAN POTASSIUM 25 MG TAB PO SCH (08:42)
[2019-07-19] MEDS: NICOTINE 14 MG/24 HR PATCH TD SCH (08:42)
[2019-07-19] MEDS: METOPROLOL SUCC 25MG EXT REL TAB PO SCH (08:42)
[2019-07-19] MEDS: CHOLECALCIFEROL 1,000 UNITS TAB PO SCH (08:42)
[2019-07-19] MEDS: ISOSORBIDE MONONITRATE 20 MG TAB PO SCH ×2 (08:43→20:47)
[2019-07-19] MEDS: SERTRALINE HCL 100 MG TABLET PO SCH (08:43)
[2019-07-19] MEDS: ASPIRIN 81 MG ECTAB PO SCH (08:43)
[2019-07-19] MEDS: GABAPENTIN 100 MG CAP PO SCH ×3 (08:43→20:47)
[2019-07-19] MEDS: TRAZODONE HCL 50 MG TAB PO SCH (08:43)
[2019-07-19] MEDS: DOXYCYCLINE HYCLATE 100 MG CAP PO SCH ×2 (08:43→20:47)
--- NOTE | 2019-07-19 08:45 | CT Scan Report ---
CT head/brain wo con CLINICAL HISTORY: 79 years-old Male with r/o stroke. Acute strokelike symptoms TECHNIQUE: Multiple axial CT images of the head were obtained without contrast. A dose lowering tech nique was utilized adhering to the principles of ALARA. CT DOSE: 691.05 mGy.cm COMPARISON: PET CT 07/16/2019 FINDINGS: No acute intracranial hemorrhage, midline shift, intracranial mass, hydrocephalus, territorial ischem ia or abnormal extra-axial collection. Age-related involutional changes with ex vacuo ventricular lik steph. Patchy white matter hypodensities suggest chronic microvascular ischemic disease. Ill-defined ar ea of decreased attenuation involving the left periventricular white matter medrano radiata extending into the distribution of the superior left thalamus measures up to 1.3 x 1.2 cm on image 20 of series 2, new from prior. The calvarium is intact. The paranasal sinuses, mastoid air cells, and middle ear cavities are clear . IMPRESSION: 1. No acute intracranial hemorrhage, midline shift or acute territorial infarct. 2. Ill-defined area of decreased attenuation involving the left periventricular white matter medrano r adiata extending into the distribution of the superior left thalamus is suggestive of an acute lacuna r infarction, new from 07/16/2019. ACT 112: Negative or not required by law. The above report was generated using voice recognition software. It may contain grammatical, syntax o r spelling errors. Electronically signed by: Thomas Ny M.D. 07/19/2019 8:43 AM
--- NOTE | 2019-07-19 09:23 | Cardiology Progress Note ---
Date of Service July 19, 2019 Assessment & Plan (1) SOB (shortness of breath): The patient does not examine his volume overloaded I personally reviewed his chest x-ray and do not believe it is consistent with a vascular congestion pattern more likely a developing infiltrate Laboratory studies also support the fact that he is likely volume depleted I would not diurese any further infected recommend IV fluid I would recommend maintaining him on his outpatient metoprolol, losartan, aspi rin, Zetia and Imdur I would recommend he follow-up with his primary marine cargo specialist after discharge No further cardiac testing or intervention is necessary at this time (2) Ambulatory dysfunction: Neurology and orthopedics are following CT of the head performed today confirms CVA We were able to obtain from his primary marine cargo specialist office that his pacemaker is [employer], nursing staff then spoke with the [employer] hotline and confirmed that his device is MRI compatible No contraindication to MRI from a cardiac standpoint (3) HTN (hypertension): Controlled, would maintain outpatient medical regimen (4) Cardiac pacemaker in situ: Follow-up for regular scheduled device checks as per primary marine cargo specialist Again, his device is MRI compatible (5) COPD exacerbation: Active Will defer treatment to the primary team (6) CAD (coronary artery disease): Stable Subjective Patient seen and examined out of bed in wheelchair. States that he is feeling better this morning and breathing easier after having treatment for sinuses overnight. Denies any chest pain, palpitations, lightheadedness, dizziness or syncope. Telemetry reviewed: Ventricular paced rhythm Review of Systems Review of Systems: All systems reviewed & are unremarkable except as noted in HPI & below Physical Exam Physical Exam: General: Awake, alert and oriented x 3. No acute distress. HEENT: Normocephalic, atraumatic. Pupils equal, round and reactive to light and accommodation. Extraocular muscles are intact. Anicteric sclera. Moist mucous membranes. Neck: No JVD. No bruit. Cardiovascular: Regular. Positive S-4. Normal S-1 and S-2. No S-3. 3/6 mid to late systolic ejection murmur, greatest at the right sternal border, second intercostal space with radiation to the bilateral carotids. No rubs. Pulmonary: Clear to auscultation bilaterally. No rales, rhonchi, or wheezing. Abdomen: Bowel sounds x 4, soft. No rebound, guarding or tenderness. No organomegaly. Extremities: No clubbing, cyanosis or edema. +2 pedal pulses bilaterally. Skin: Warm and dry. Results & Data Vital Signs (Past 12 Hours) Vital Signs Temp Pulse Pulse Resp BP Pulse Ox Pulse Ox 07/19/19 07:54 36.9 C 100 H 16 118/69 96 07/19/19 06:55 67 20 93 07/19/19 03:02 36.6 C 63 24 120/69 07/19/19 01:20 66 24 99 07/19/19 01:19 67 24 99 07/19/19 00:06 65 07/19/19 00:00 98 07/18/19 23:25 36.6 C 67 20 126/66 100 07/18/19 22:17 65 16 98
[2019-07-19] MEDS ORDERED: CLOPIDOGREL BISULFATE 75 MG TAB PO ONE ×2 (09:54→12:53)
[2019-07-19] MEDS: ATORVASTATIN 40 MG TAB PO SCH ×2 (11:27→12:57)
[2019-07-19] MEDS ORDERED: methylPREDNISolone 40 MG in SYRINGE 0 ML IV SCH (14:00)
--- NOTE | 2019-07-19 15:10 | Pharmacy Report ---
Pharmacy Abx Dose Short Note - Date of Service July 19, 2019 - Assessment & Plan Assessment 07/19/19: * Trough level drawn prior to the 3rd maintenance dose: 16 mcg/mL * This is likely not yet steady state, so will check another level in 24 hours to ensure that level does not become supratherapeutic 07/17/19 * 79 year old M ordered empiric vancomycin IV for treatment of gram positive cocci (in clusters) in 1/2 BC * S.aureus/MRSA PCR pending -> if both result as negative isolate is likely CoNS * Patient also on ceftriaxone and doxycycline for treatment of COPD exacerbation * CXR from 07/16: cardiomegaly with mild pulmonary edema * procalcitonin = 0.05 ng/mL Plan * Continue Vancomycin 1250mg IV q12h * Trough level ordered for tomorrow morning to assess level at steady-state. Pharmacy will continue to follow and will adjust dose/frequency as necessary. Thank you.
--- NOTE | 2019-07-19 15:11 | Neurology Progress Note ---
Date of Service July 19, 2019 Assessment & Plan (1) Ambulatory dysfunction: 1. would repeat CT head- possible stroke patient does have a right pronator drift no history of stroke- lacunar stroke 2. pacemaker- according to cardiology note Dr Morgan pacemaker is MRI compatible - could due no contrast MRI for further detailing of stroke- no needed at this time 3. currently on aspirin 81 mg plavix 75 mg added, continue x 3 weeks then stop aspirin continue plavix for a lifetime 4. no infectious source found at this point 5. blurred vision - may need ophthalmology exam 6. PT/OT for evaluation 7. optimize HTN, HLD, DM LDL<70 8. must stop smoking 9. CTA head /neck r/o embolic event 10. cardiology interrogation of pacemaker as scheduled in [place] return to neurology 4-[address] Soo Varela. (2) Weakness: as above (3) SOB (shortness of breath): 1. smoking cessation advised 2. gasping breaths at night- sleep study if not already done 3. continue O2 for now 4. TTE- 60-65% 5. pacemaker interrogation if not recently done Supervising Physician Co-Signing Physician Notes Patient was seen and examined. at bedside. Agree with MANISHA Bains. Mr. Wren is a 79 year old male admitted with a left periventricular lacunar infract Likely lenticulostriate arteries from small vessel ischemic disease. On examine he continues to have right upper extremity drift. CT head confirmed left periventricualr lacunar infarct. CTA neck showed ~ 50 stenosis of left ICA. TTE showed no cardiac source of embolism. Recommendation dual antiplatlet therapy for 21 days then Plavix 75 mg daily Patient report intolerant to statins Discussed importance of smoking cessation Outpatient follow up with VAscular surgery Neurology follow up in 8 weeks Will defer to PT/OT for rehab needs SBP<140, DBP<90 mm Hg Please call neurology with any further questions or concerns. 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 He also was complaining of SOB and cough x 2 weeks. His is at bedside and she states he got out of bed to smoke a cigarette in the garage. When he came back he fell in the bathroom and couldn't get up. He had no LOC and didn't hit his head. He is a current 1/2 ppd smoker which started at age 14. states he wears O2 at night 2 L but often she hears him wake with gasping breaths. He states he has ongoing weakness in his LLE due to spinal stenosis however his right LE is now weak after the fall. He is also complaining of blurred vision both near and far. She also states about 2 weeks ago he was stating the TV was talking to him and that lasted several days. unclear if any new medication were started. Today he is doing ok. is bedside and discussed CT repeated and stroke seen on imaging. denies CP, abdominal pain, N, V, new bowel or bladder issues, slurred speech, swallowing issues. 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 triceps 4+/5 bilaterally may be slightly less on right hip flex 4+/5 bilaterally plantar flex ext 5/5 sensation intact to touch Results & Data Vital Signs (Past 12 Hours) Vital Signs Temp Pulse Pulse Resp BP Pulse Ox Pulse Ox 07/19/19 13:33 62 18 91 07/19/19 12:02 36.5 C 92 H 18 122/59 L 95 07/19/19 08:00 66 98 07/19/19 07:54 36.9 C 100 H 16 118/69 96 07/19/19 06:55 67 20 93 Laboratory Results Abnormal lab results 07/18/19 07/18/19 07/19/19 Range/Units 16:17 20:12 03:17 Anion Gap 2.0 L (3-11) BUN 41 H (7-18) mg/dl BUN/Creatinine Ratio 42.7 H (10-20) Glucose 194 H (70-99) mg/dl POC Glucose 120 H 229 H (70-99) Calcium 8.4 L (8.5-10.1) mg/dl 07/19/19 07/19/19 Range/Units 07:32 11:22 Anion Gap (3-11) BUN (7-18) mg/dl BUN/Creatinine Ratio (10-20) Glucose (70-99) mg/dl POC Glucose 178 H 205 H (70-99) Calcium (8.5-10.1) mg/dl Diagnostic Findings CT head- repeated 07/19-No acute intracranial hemorrhage, midline shift or acute territorial infarct. Ill-defined area of decreased attenuation involving the left periventricular white matter medrano radiata extending into the distribution of the superior left thalamus is suggestive of an acute lacunar infarction, new from 07/16/2019.
[2019-07-19] MEDS ORDERED: OPTIRAY 320 125ml IV PRN (16:53)
--- NOTE | 2019-07-19 17:12 | CT Scan Report ---
CT angio head w con CLINICAL HISTORY: 79 years-old Male presenting with stenosis, embolic stroke. TECHNIQUE: Multidetector CT angiography of the head was performed after the administration of intrave nous contrast. 3-D volumetric and/or maximum intensity projection (MIP) images were subsequently carito nstructed for review. IV contrast: 119 mL of Optiray 320. One or more dose lowering techniques were u sed consistent with the principles of ALARA (as low as reasonably achievable), including automatic ex posure control, mA or kV adjustment to individual patient size, and/or use of iterative reconstructio n. COMPARISON: Noncontrast CT head. CT DOSE (mGy.cm): The estimated cumulative dose is 719.33 mGy.cm. FINDINGS: Rug Cutter Helper topogram: Unremarkable. Anterior circulation: Atherosclerosis of the cavernous segments of the internal carotid arteries. Int racranial portions of the internal carotid arteries patent to the level of the termini. Anterior cere bral arteries patent. Middle cerebral arteries patent. Anterior communicating artery patent. Posterior circulation: Codominant vertebral arteries. Intradural portions of the vertebral arteries p atent. Posterior inferior cerebellar arteries patent. Basilar artery patent. Anterior inferior cerebe llar arteries poorly visualized. Superior cerebellar arteries patent. Right posterior cerebral artery with severe focal stenosis in the proximal portion likely at the junction of the P1 and P2 segments. Left posterior cerebral artery patent. Posterior communicating arteries hypoplastic or aplastic. Dural venous sinuses: Grossly patent allowing for the early phase of contrast. Other: Age-related volume loss of the brain parenchyma. Redemonstration of the lacunar infarct in the left periventricular white matter. Calvarium intact. IMPRESSION: 1. Severe focal stenosis of the proximal right BUSINESS TEACHER at the junction of the P1 and P2 segments. This i s likely on an atherosclerotic basis given the central location and focality. 2. No evidence of aneurysm or focal vessel occlusion. ACT 112: Negative or not required by law. Electronically signed by: Alexandro Aly M.D. 07/19/2019 5:10 PM
--- NOTE | 2019-07-19 17:14 | CT Scan Report ---
CT ANGIOGRAM OF THE NECK CLINICAL HISTORY: Strokelike symptoms. COMPARISON STUDY: No priors. TECHNIQUE: Following the IV administration of 119 of Optiray 320, CT angiogram of the neck was perfor med from the aortic arch to the skull base. Images are reviewed in the axial, sagittal, and coronal p lanes. 3-D MIPS images are created and assessed. IV contrast was administered without complication. A ll measurements were calculated based on NASCET criteria. A dose lowering technique was utilized adh ering to the principles of ALARA. FINDINGS: Thoracic aorta: There is evidence carotid calcification of the thoracic aorta. Visualized portions of the thoracic aorta are normal in caliber. The aortic arch demonstrates standard 3-vessel anatomy. Right carotid arterial system: The right common carotid artery is widely patent, as are the right int ernal and external carotid arteries. There is tortuosity of the distal internal carotid artery. Left carotid arterial system: The left common carotid artery is widely patent. There is approximately 50% stenosis at the origin of the left internal carotid artery. The left internal carotid artery is otherwise widely patent. Subclavian arteries: Widely patent bilaterally. Vertebral arteries: Vertebral arteries are widely patent bilaterally and codominant. Intracranial vasculature: The visualized intracranial vessels at the skull base are patent. Jugular veins: Patent bilaterally. Brain parenchyma: The visualized brain parenchyma the skull base is within normal limits. Lung apices: Emphysematous change is noted. There are foci of scarring/atelectasis in the upper lobes . Cardiac pacemaker is present in the left chest wall. Soft tissues: The visualized pharyngeal soft tissues are normal in appearance noting angiographic pha se technique. The oropharyngeal airway appears widely patent. The salivary and thyroid glands are nor mal in appearance. No cervical lymphadenopathy is seen. Skeletal structures: The skeletal structures are osteopenic. The visualized calvarium at the skull ba se appears intact. The imaged cervical spine is maintained noting multilevel spondylosis. No lytic or blastic lesion is seen. Sinuses and mastoids: There is trace mucosal thickening in the left maxillary antrum. The remaining v isualized paranasal sinuses are clear. There is a left mastoid effusion. The right mastoid air cells are well pneumatized. IMPRESSION: 1. There is approximately 50% focal stenosis at the origin of the left internal carotid artery. 2. Otherwise unremarkable CT angiogram of the neck. 3. Emphysema. ACT 112: Negative or not required by law. Electronically signed by: Gerard Dunn M.D. 07/19/2019 5:12 PM
[2019-07-19] MEDS: cefTRIAXone SODIUM 2,000 MG in DEXTROSE 5% 50 ML IV SCH (17:29)
[2019-07-19] MEDS: FLUTICASONE/UMECLIDIN/VILANTER INH SCH (17:43)
--- NOTE | 2019-07-19 18:04 | Hospitalist Progress Note ---
Date of Service July 19, 2019 Assessment & Plan (1) CHF (congestive heart failure): Chest x-ray showed pulmonary vascular congestion. Echo shows normal systolic function, grade I diastolic dysfunction, apical wall motion abnormality possibly secondary to pacemaker activation. Acute on chronic left ventricular diastolic heart failure. Volume status improved On Lasix 20mg X3/week Appreciate Cardiology Input Needs follow up with Cardiology upon discharge Acute CVA --CT Head:No acute intracranial hemorrhage, midline shift or acute territorial infarct. Ill-defined area of decreased attenuation involving the left periventricular white matter medrano radiata extending into the distribution of the superior left thalamus is suggestive of an acute lacunar infarction, new from 07/16/2019. --Head CTA: Severe focal stenosis of the proximal right RESEARCH PROGRAM ASSISTANT at the junction of the P1 and P2 segments. This is likely on an atherosclerotic basis given the central location and focality. No evidence of aneurysm or focal vessel occlusion. --Neck CTA:There is approximately 50% focal stenosis at the origin of the left internal carotid artery. Otherwise unremarkable CT angiogram of the neck. Emphysema. --ECHO done --Continue dual antiplatelet therapy with aspirin, Plavix for 3 weeks and then transition to Plavix for lifetime --Zetia discontinued. Started on Lipitor 40 mg --Appreciate neurology input. Needs follow-up with neurology in 6 to 8 weeks --Also needs follow-up with vascular surgery as outpatient --Continue PT/OT (2) CAD (coronary artery disease): EKG shows paced rhythm. Echo shows normal systolic function, apical wall motion abnormality possibly secondary to pacemaker activation. Continue aspirin, losartan, nitrates, lipitor (3) Cardiac pacemaker in situ: S/P pacemaker. Monitor (4) COPD (chronic obstructive pulmonary disease): Severe COPD. Ongoing Tobacco Use Counselled to quit smoking Decrease IV Solu-Medrol to Q8H Continue nebs, supplemental Oxygen, abx Titrate off of oxygen to keep sats greater than 90 (5) HTN (hypertension): Continue losartan, Isosorbide. (6) Diabetes mellitus type 2 with complications: DM II Was on metformin. Hgb A1C 5.7. Hold PO meds for now Continue Insulin coverage while hospitalized Monitor BGs (7) Fall: H/O several recent falls. Ambulatory dysfunction CT LS spine shoed L1 compression deformity, indeterminate age. X-ray knees show moderate effusions, ? secondary to trauma. Appreciate Orthopedics Input PT/OT (8) Ambulatory dysfunction: lumbar spinal stenosis. DJD B/L Knees No cord compression seen on CT, but imaging limited. PT / OT evals. Fall precautions. Appreciate Orthopedics Input (9) Lumbar spinal stenosis: As noted above. (10) Diplopia: Intermittent diplopia and blurred vision. Likely due to acute CVA Appreciate Neurology Input (11) Positive blood culture: 1 of 2 blood cultures growing coagulase-negative staph--likely contamination Repeat blood cultures:No growth to date Discontinue IV vancomycin Appreciate ID input (12) Tobacco abuse: Smoking cessation counseling. Nicotine replacement. (13) DVT prophylaxis: SQ Lovenox (14) Discharge planning issues: To be determined Internal Medicine follow-up with Dr. Barriga. Subjective Patient is seen and examined at bedside Shortness of breath, cough slightly improved today Complains of blurry vision which is been unchanged since admission Continues to have bilateral lower extremity weakness Denies any chest pain, dizziness, nausea, abdominal pain CT head suggestive of acute CVA Review of Systems Review of Systems: All systems reviewed & are unremarkable except as noted in HPI & below Physical Exam Physical Exam: Physical Exam: Vitals signs as noted above General Appearance:Moderately built and nourished, no apparent distress Head: normocephalic, Atraumatic Eyes: normal inspection, EOMI Neck: supple, Trachea midline Respiratory/Chest: Decreased breath sounds, + B/L wheezing CTA Cardiovascular: S1, S2, No murmur Abdomen/GI:Soft, Non tender, Bowel sounds present Extremities/Musculoskelatal:normal inspection, no edema Neurologic/Psych:AAOX3, grossly no focal neurological deficits Skin: normal color, warm Results & Data Vital Signs (Past 12 Hours) Vital Signs Temp Pulse Pulse Resp BP Pulse Ox Pulse Ox 07/19/19 16:00 63 95 07/19/19 15:45 36.5 C 63 18 118/67 94 07/19/19 13:33 62 18 91 07/19/19 12:02 36.5 C 92 H 18 122/59 L 95 07/19/19 08:00 66 98 07/19/19 07:54 36.9 C 100 H 16 118/69 96 07/19/19 06:55 67 20 93 Laboratory Results [facility] 07/19/19 03:17 Sodium 137 Potassium 4.5 Chloride 107 Carbon Dioxide 28 BUN 41 H Creatinine 0.96 Glucose 194 H Calcium 8.4 L (1) Fall Encounter type: initial encounter Qualified Code(s): W19.XXXA - Unspecified fall, initial encounter
[2019-07-19] MEDS: ENOXAPARIN INJ 40 MG/0.4 ML SYR SQ SCH (20:47)
[2019-07-20] MEDS: ALBUT/IPRATROP 3MG/0.5MG NEB 3 ML VIAL NEB SCH ×3 (01:02→12:57)
[2019-07-20] MEDS ORDERED: VANCOMYCIN TROUGH ONE (03:30)
[2019-07-20] MEDS: methylPREDNISolone 40 MG in SYRINGE 0 ML IV SCH (06:11)
[2019-07-20 07:47] LABS: BUN Creatinine Ratio 37.6 (10-20); Calcium 8.8 mg/dl (8.5-10.1); Creatinine Clr Calc Pharmacy 68.9 ml/min; Est GFR (Non-African American) 76.8; Potassium 4.4 mmol/L (3.5-5.1)
[2019-07-20] MEDS: DOXYCYCLINE HYCLATE 100 MG CAP PO SCH (07:52)
[2019-07-20] MEDS: CHOLECALCIFEROL 1,000 UNITS TAB PO SCH (07:52)
[2019-07-20] MEDS: SERTRALINE HCL 100 MG TABLET PO SCH (07:53)
[2019-07-20] MEDS: METOPROLOL SUCC 25MG EXT REL TAB PO SCH (07:53)
[2019-07-20] MEDS: ASPIRIN 81 MG ECTAB PO SCH (07:54)
[2019-07-20] MEDS: NICOTINE 14 MG/24 HR PATCH TD SCH (07:54)
[2019-07-20] MEDS: TRAZODONE HCL 50 MG TAB PO SCH (07:54)
[2019-07-20] MEDS: GABAPENTIN 100 MG CAP PO SCH ×2 (07:55→14:00)
[2019-07-20] MEDS: LOSARTAN POTASSIUM 25 MG TAB PO SCH (07:55)
[2019-07-20] MEDS: ATORVASTATIN 40 MG TAB PO SCH ×2 (07:56→07:57)
[2019-07-20] MEDS: ISOSORBIDE MONONITRATE 20 MG TAB PO SCH (07:56)
[2019-07-20] MEDS: FLUTICASONE/UMECLIDIN/VILANTER INH SCH (07:58)
[2019-07-20] MEDS: INSULIN ASPART 100 UNITS/ML 3 ML PEN SC SCH ×2 (07:59→11:58)
[2019-07-20] MEDS ORDERED: CLOPIDOGREL BISULFATE 75 MG TAB PO SCH ×2 (09:00)
--- NOTE | 2019-07-20 10:42 | Cardiology Progress Note ---
Date of Service July 20, 2019 Assessment & Plan (1) SOB (shortness of breath): The patient does not examine his volume overloaded Would resume outpatient diuretic regimen of furosemide 20 mg p.o. Wednesdays and Fridays. Okay to transfer to rehab from a cardiac standpoint. Recommend follow-up with primary territory sales executive after discharge. (2) Ambulatory dysfunction: Neurology and orthopedics are following CT of the head performed today confirms CVA We were able to obtain from his primary territory sales executive office that his pacemaker is [employer], nursing staff then spoke with the [employer] hotline and confirmed that his device is MRI compatible No contraindication to MRI from a cardiac standpoint (3) HTN (hypertension): Controlled, would maintain outpatient medical regimen (4) Cardiac pacemaker in situ: Follow-up for regular scheduled device checks as per primary territory sales executive Again, his device is MRI compatible (5) COPD exacerbation: Active Will defer treatment to the primary team (6) CAD (coronary artery disease): Stable Subjective Patient seen and examined currently with complaint of back pain. He states that this is chronic. He states his breathing has significantly improved since admission and is close to baseline. Unfortunately, he did have a fall overnight and is scheduled for transfer to inpatient rehab today. He denies any complaints of chest pain, palpitations, lightheadedness, dizziness or syncope. Telemetry reviewed: Ventricularly paced rhythm Review of Systems Review of Systems: All systems reviewed & are unremarkable except as noted in HPI & below Physical Exam Physical Exam: General: Awake, alert and oriented x 3. No acute distress. HEENT: Normocephalic, atraumatic. Pupils equal, round and reactive to light and accommodation. Extraocular muscles are intact. Anicteric sclera. Moist mucous membranes. Neck: No JVD. No bruit. Cardiovascular: Regular. Positive S-4. Normal S-1 and S-2. No S-3. 3/6 mid to late systolic ejection murmur, greatest at the right sternal border, second intercostal space with radiation to the bilateral carotids. No rubs. Pulmonary: Clear to auscultation bilaterally. No rales, rhonchi, or wheezing. Abdomen: Bowel sounds x 4, soft. No rebound, guarding or tenderness. No organomegaly. Extremities: No clubbing, cyanosis or edema. +2 pedal pulses bilaterally. Skin: Warm and dry. Results & Data Vital Signs (Past 12 Hours) Vital Signs Temp Pulse Pulse Pulse Resp BP Pulse Ox 07/20/19 08:00 76 07/20/19 07:46 36.9 C 76 18 129/64 97 07/20/19 07:03 88 19 94 07/20/19 07:00 07/20/19 03:11 36.4 C L 76 20 113/69 94 07/20/19 02:10 36.7 C 62 16 146/76 H 92 07/20/19 01:03 56 L 19 94 07/20/19 01:02 56 L 19 94 07/19/19 23:20 36.6 C 68 16 147/82 H 95 Pulse Ox 07/20/19 08:00 97 07/20/19 07:46 07/20/19 07:03 07/20/19 07:00 97 07/20/19 03:11 07/20/19 02:10 07/20/19 01:03 07/20/19 01:02 07/19/19 23:20
[2019-07-20] MEDS ORDERED: COLESEVELAM HCL PO SCH (13:30)
[2019-07-20] MEDS ORDERED: FUROSEMIDE 20 MG TAB PO SCH (14:30)
--- NOTE | 2019-07-20 14:40 | Hospitalist Progress Note ---
Date of Service July 20, 2019 Assessment & Plan (1) CHF (congestive heart failure): Chest x-ray showed pulmonary vascular congestion. Echo shows normal systolic function, grade I diastolic dysfunction, apical wall motion abnormality possibly secondary to pacemaker activation. Acute on chronic left ventricular diastolic heart failure. Volume status improved Resume Lasix 20mg X3/week Appreciate Cardiology Input Needs follow up with Cardiology upon discharge Acute CVA --CT Head:No acute intracranial hemorrhage, midline shift or acute territorial infarct. Ill-defined area of decreased attenuation involving the left periventricular white matter medrano radiata extending into the distribution of the superior left thalamus is suggestive of an acute lacunar infarction, new from 07/16/2019. --Head CTA: Severe focal stenosis of the proximal right SENIOR DIGITAL DESIGNER at the junction of the P1 and P2 segments. This is likely on an atherosclerotic basis given the central location and focality. No evidence of aneurysm or focal vessel occlusion. --Neck CTA:There is approximately 50% focal stenosis at the origin of the left internal carotid artery. Otherwise unremarkable CT angiogram of the neck. Emphysema. --ECHO done --Continue dual antiplatelet therapy with aspirin, Plavix for 3 weeks and then transition to Plavix for lifetime --Zetia discontinued. Started on Lipitor 40 mg --Appreciate neurology input. Needs follow-up with neurology in 6 to 8 weeks --Also needs follow-up with vascular surgery as outpatient --Continue PT/OT --Plan to discharge to Rehab facility (2) CAD (coronary artery disease): EKG shows paced rhythm. Echo shows normal systolic function, apical wall motion abnormality possibly secondary to pacemaker activation. Continue aspirin, losartan, nitrates, lipitor (3) Cardiac pacemaker in situ: S/P pacemaker. Monitor (4) COPD (chronic obstructive pulmonary disease): Severe COPD. Ongoing Tobacco Use Counselled to quit smoking Taper IV Solu-Medrol and transition to prednisone upon discharge Continue nebs, supplemental Oxygen, abx Titrate off of oxygen to keep sats greater than 90 (5) HTN (hypertension): Continue losartan, Isosorbide. (6) Diabetes mellitus type 2 with complications: DM II Was on metformin. Hgb A1C 5.7. Hold PO meds for now Continue Insulin coverage while hospitalized Monitor BGs (7) Fall: H/O several recent falls. Ambulatory dysfunction CT LS spine shoed L1 compression deformity, indeterminate age. X-ray knees show moderate effusions, ? secondary to trauma. Appreciate Orthopedics Input PT/OT (8) Ambulatory dysfunction: lumbar spinal stenosis. DJD B/L Knees No cord compression seen on CT, but imaging limited. PT / OT evals. Fall precautions. Appreciate Orthopedics Input Needs Rehab Placement (9) Lumbar spinal stenosis: As noted above. (10) Diplopia: Intermittent diplopia and blurred vision. Likely due to acute CVA Appreciate Neurology Input (11) Positive blood culture: 1 of 2 blood cultures growing coagulase-negative staph--likely contamination Repeat blood cultures:No growth to date Discontinue IV vancomycin Appreciate ID input (12) Tobacco abuse: Smoking cessation counseling. Nicotine replacement. (13) DVT prophylaxis: SQ Lovenox (14) Discharge planning issues: Discharge to acute Rehab Facility today Internal Medicine follow-up with Dr. Barriga. Subjective Patient is seen and examined at bedside Cough, dyspnea much improved Continues to complain of of blurry vision Also reports bilateral lower extremity weakness Denies any chest pain, dizziness, nausea, abdominal pain Plan to be discharged to rehab facility today Review of Systems Review of Systems: All systems reviewed & are unremarkable except as noted in HPI & below Physical Exam Physical Exam: Physical Exam: Vitals signs as noted above General Appearance:Moderately built and nourished, no apparent distress Head: normocephalic, Atraumatic Eyes: normal inspection, EOMI Neck: supple, Trachea midline Respiratory/Chest: Decreased breath sounds, CTA Cardiovascular: S1, S2, No murmur Abdomen/GI:Soft, Non tender, Bowel sounds present Extremities/Musculoskelatal:normal inspection, no edema Neurologic/Psych:AAOX3, grossly no focal neurological deficits Skin: normal color, warm Results & Data Vital Signs (Past 12 Hours) Vital Signs Temp Pulse Pulse Pulse Resp BP Pulse Ox 07/20/19 12:57 81 20 97 07/20/19 12:03 36.8 C 89 18 131/71 96 07/20/19 08:00 76 07/20/19 07:46 36.9 C 76 18 129/64 97 07/20/19 07:03 88 19 94 07/20/19 07:00 07/20/19 03:11 36.4 C L 76 20 113/69 94 Pulse Ox 07/20/19 12:57 07/20/19 12:03 07/20/19 08:00 97 07/20/19 07:46 07/20/19 07:03 07/20/19 07:00 97 07/20/19 03:11 Laboratory Results [facility] 07/20/19 06:43 Sodium 138 Potassium 4.4 Chloride 104 Carbon Dioxide 29 BUN 35 H Creatinine 0.94 Glucose 139 H Calcium 8.8 (1) Fall Encounter type: initial encounter Qualified Code(s): W19.XXXA - Unspecified fall, initial encounter
--- NOTE | 2019-07-20 15:15 | Discharge Summary ---
Date of Service July 20, 2019 Admission HPI Per Admitting Provider This is a 79-year-old male who has significant past medical history of CAD with history of angioplasty and 05/03, T2DM, HTN, cardiac pacemaker in situ / bradycardia (2017 Dr. Dixon [facility] diana), HLD, COPD, Tobacco abuse, nocturnal hypoxia on 2L O2 at HS, depression, GERD, hx of bladder ca low-grade papillary urothelial carcinoma (04/2012 s/p cystoscopy), presents to [facility] ED secondary to lower extremity weakness and fall x3 this morning as well as increasing shortness of breath and cough x2 weeks. and son are at bedside. He elicits he woke up this morning and when trying to go to the bathroom at 3 falls, felt very weak in his legs. He did not lose consciousness or hit his head. He did feel dizzy prior to fall, but not presyncope. He further elicits to having increasing cough over the past 2 weeks, productive, clear sputum, increasing shortness of breath at rest and with exertion, and wheezing. He denies any purulence in sputum fever, chills, sweats, lightheadedness, chest pain, hemoptysis, nausea, vomiting, abdominal pain, dysuria, increased urgency or frequency with urination, change in bowel habits. He is a current half a pack per day smoker and has smoked since age of 14. He states he does wear 2 L of oxygen at bedtime. He denies any orthopnea or PND, but feels like he wakes up "gasping for air." He denies any increased lower extremity swelling. He does not monitor his weights, but was told his weight was up at his last PCP visit. Discussed case with ED provider. Records were obtained from PCP which did reveal last visit 06/27/2019 in which she is losartan was decreased to 25 mg daily, gabapentin decreased to twice daily. He was started on oxycodone 2.5 mg twice daily as needed secondary to chronic low back pain due to spinal stenosis. He was also encouraged to start Medrol Dosepak. His weight was 190 pounds which was a 7 pounds higher than prior visit. In ED patient remained hemodynamically stable; however was hypoxic requiring 2 L of O2. His CBC was relatively unremarkable, ABG pH 7.30, PCO2 58, BUN/creatinine 11 and 0.80, glucose 133. Glucose WNL at .022, proBN 1,432, TSH 1.67. CTA chest negative for PE, But did reveal diffuse interlobular septal thickening suggesting component of CHF. He had numerous imaging due to fall, lumbar spine CT did reveal a compression deformity at L1. In ED he received furosemide 40 mg x 1 and 60 mg of IV Solu-Medrol. He also received hour-long neb treatment. IVC ultrasound performed at bedside by ED provider which revealed mildly collapsible IVC, but no carlos overload. During my evaluation he was using accessory muscle use despite saturating well on O2. Respiratory therapy was consulted and he was placed on BiPAP. Admission Exam Per Admitting Provider constitutional: Elderly, male, lying in bed, using accessory muscles for breathing, on O2 via NC, vitals as above, drowsy but arousable, answers questions appropriately, dyspneic with conversation Head: Normocephalic, Atraumatic Eyes: PERRL, conjunctivae normal, anicteric sclerae, ENMT: external ear and nose normal, oropharynx normal, dry mucous membranes Neck: trachea midline, no thyromegaly normal visual inspection Respiratory: Increased respiratory effort using abdominal musculature, decreased breath sounds at bases, coarse breath sounds throughout, significant expiratory wheezing throughout, wet cough noted on exam, no rales, rhonchi. Cardiovascular: RRR, no murmur, heart sounds distant secondary to coarse breath sounds, no edema Vessels: no JVD or carotid bruit Chest: normal inspection of chest Abdomen: Protuberant abdomen, firm, nontender, no hepatosplenomegaly Musculoskeletal: no cyanosis or clubbing, extremities motor strength 5/5 Skin: no rashes, warm and dry mild turgor Neurologic: PERRL, EOMI, accommodation nl, no face palsy, no dysarthria CN's II-XI intact bilaterally and moves all extremities Psychiatric: A+Ox3, euthymic affect Lymphatic: no cervical or axillary lymphadenopathy : deferred Principal Diagnosis Acute cerebrovascular accident Acute on chronic diastolic heart failure Acute COPD exacerbation Ambulatory dysfunction Discharge Data Allergies Allergy/AdvReac Type Severity Reaction Status Date / Time ibuprofen AdvReac Intermediate HIVES Verified 07/16/19 10:35 Consultations 07/16/19 12:22 ED Decision to Admit Stat 07/16/19 16:31 Consult Case Management - Discharge Planning Routine 07/18/19 05:47 Consult Cardiology Routine Consult Infectious Diseases Routine Consult Neurology Routine 07/18/19 08:00 Consult Orthopedic Surgery Routine Consult Orthopedic Surgery Routine Procedures Performed --CT Head:No acute intracranial hemorrhage, midline shift or acute territorial infarct. Ill-defined area of decreased attenuation involving the left periventricular white matter medrano radiata extending into the distribution of the superior left thalamus is suggestive of an acute lacunar infarction, new from 07/16/2019. --Head CTA: Severe focal stenosis of the proximal right [employer] at the junction of the P1 and P2 segments. This is likely on an atherosclerotic basis given the central location and focality. No evidence of aneurysm or focal vessel occlusion. --Neck CTA:There is approximately 50% focal stenosis at the origin of the left internal carotid artery. Otherwise unremarkable CT angiogram of the neck. Emphysema. --Chest CTA: There is no evidence of pulmonary embolus in the main, lobar, or segmental pulmonary arteries. Cardiomegaly and cardiac pacemaker. Diffuse intralobular septal thickening suggests a component of congestive failure. Clinical correlation be required. Trace right pleural effusion. Emphysema. --Lumbar CT: No acute lumbar spine fracture or subluxation. Moderate L1 compression deformity which is likely old. Severe multilevel degenerative disc disease and facet arthrosis. Mild levoscoliosis of the lumbar spine. Ordered Studies 07/16/19 10:42 CT abd pelvis IV con only Stat CT angio chest PE protocol Stat CT head/brain wo con Stat CT lumbar spine wo con Stat 07/19/19 07:58 CT head/brain wo con Routine 07/19/19 16:27 CT angio head w con Routine CT angio neck with con Routine Hospital Course (1) CHF (congestive heart failure): Chest x-ray showed pulmonary vascular congestion. Echo shows normal systolic function, grade I diastolic dysfunction, apical wall motion abnormality possibly secondary to pacemaker activation. Acute on chronic left ventricular diastolic heart failure. Volume status improved Resume Lasix 20mg X3/week Appreciate Cardiology Input Needs follow up with Cardiology upon discharge Acute CVA --CT Head:No acute intracranial hemorrhage, midline shift or acute territorial infarct. Ill-defined area of decreased attenuation involving the left periventricular white matter medrano radiata extending into the distribution of the superior left thalamus is suggestive of an acute lacunar infarction, new from 07/16/2019. --Head CTA: Severe focal stenosis of the proximal right [employer]TE[employer]ST at the junction of the P1 and P2 segments. This is likely on an atherosclerotic basis given the central location and focality. No evidence of aneurysm or focal vessel occlusion. --Neck CTA:There is approximately 50% focal stenosis at the origin of the left internal carotid artery. Otherwise unremarkable CT angiogram of the neck. Emphysema. --ECHO done --Continue dual antiplatelet therapy with aspirin, Plavix for 3 weeks and then transition to Plavix for lifetime --Zetia discontinued. Started on Lipitor 40 mg --Appreciate neurology input. Needs follow-up with neurology in 6 to 8 weeks --Also needs follow-up with vascular surgery as outpatient --Continue PT/OT --Plan to discharge to Rehab facility (2) CAD (coronary artery disease): EKG shows paced rhythm. Echo shows normal systolic function, apical wall motion abnormality possibly secondary to pacemaker activation. Continue aspirin, losartan, nitrates, lipitor (3) Cardiac pacemaker in situ: S/P pacemaker. Monitor (4) COPD (chronic obstructive pulmonary disease): Severe COPD. Ongoing Tobacco Use Counselled to quit smoking Taper IV Solu-Medrol and transition to prednisone upon discharge Continue nebs, supplemental Oxygen, abx Titrate off of oxygen to keep sats greater than 90 (5) HTN (hypertension): Continue losartan, Isosorbide. (6) Diabetes mellitus type 2 with complications: DM II Was on metformin. Hgb A1C 5.7. Hold PO meds for now Continue Insulin coverage while hospitalized Monitor BGs (7) Fall: H/O several recent falls. Ambulatory dysfunction CT LS spine shoed L1 compression deformity, indeterminate age. X-ray knees show moderate effusions, ? secondary to trauma. Appreciate Orthopedics Input PT/OT (8) Ambulatory dysfunction: lumbar spinal stenosis. DJD B/L Knees No cord compression seen on CT, but imaging limited. PT / OT evals. Fall precautions. Appreciate Orthopedics Input Needs Rehab Placement (9) Lumbar spinal stenosis: As noted above. (10) Diplopia: Intermittent diplopia and blurred vision. Likely due to acute CVA Appreciate Neurology Input (11) Positive blood culture: 1 of 2 blood cultures growing coagulase-negative staph--likely contamination Repeat blood cultures:No growth to date Discontinue IV vancomycin Appreciate ID input (12) Tobacco abuse: Smoking cessation counseling. Nicotine replacement. (13) DVT prophylaxis: SQ Lovenox (14) Discharge planning issues: Discharge to acute Rehab Facility today Internal Medicine follow-up with Dr. Barriga. Total Time Total Time Spent Total Time Spent (In Minutes): 41 minutes Total Time Includes: Examination of the Patient, Discharge Planning, Medication Reconciliation, Communication With Other Providers and Other Discharge Plan Discharge Items Patient Disposition: Transfer Inpatient Rehab Fac Reason For Visit: COPD EXAC, HYPOXIA Discharge Diagnosis: Acute cerebrovascular accident Acute on chronic diastolic heart failure Acute COPD exacerbation Ambulatory dysfunction Activity: Resume your previous activity Exercise/Sports: Gradually increase as tolerated Non-emergency contact: Primary Care Provider, Surgeon, Manager Terminal and Neurologist Call non-emergency contact if: you have any medication questions, your symptoms worsen, your pain is not controlled, your pain is worsening, your pain is unusual for you, your pain is concerning for you and you have a fever Follow-up/Referrals: Larry Barriga [Primary Care Provider] - Diet: Carb Consistent or DM2 and Heart Healthy Addtl Attending Provider Instructions: Follow-up with your primary care physician Dr. Jen Barriga in 1 week upon discharge from rehab facility Follow-up with your neurologist Dr. Judah Casey in 4 to 6 weeks Follow-up with your order filler in 4 weeks Follow-up with your vascular surgeon in 4 weeks as per the recommendations from your neurologist. (For possible intervention of right posterior cerebral artery and left internal carotid artery stenosis) Continue aspirin 81 mg, Plavix 75 mg daily for 3 weeks--- and then transition to Plavix 75 mg daily for lifetime (Stop Aspirin after 3 weeks) Complete the antibiotic course doxycycline 100 mg twice daily for 3 more days. Prednisone Taper Course: Start taking prednisone 40 mg daily for 3 days then 30 mg daily for 3 days then 20 mg daily for 3 days then 10 mg daily for 3 days and stop Quit smoking tobacco as advised Final blood cultures are pending at time of discharge. Follow-up with your physician for results. Seek immediate medical attention if your symptoms reoccur or worsen Risk Factors for Stroke: You can reduce your chances of stroke by working with your medical provider to adopt a healthy lifestyle. Some specific ways to lower your chance of stroke are: * If you are a smoker, now is the time to stop smoking cigarettes * If you are diabetic, improve the control of your blood sugars * Avoid excessive amounts of alcohol * Control high blood pressure * Lose weight if you are overweight * Be sure to lead an active lifestyle * Eat a healthy diet low in salt, cholesterol and fat You should know about other risk factors for stroke that you are unable to control. These include: * Age 55 years or older * Male gender * Certain racial groups: , or / * Family History of Stroke, Mini stroke or Heart Attack * Sickle Cell Disease Follow Up: It is important for you to keep your follow up appointments with your medical provider. Who to Call and When: Medical Emergencies: Call 911 immediately if you experience any of the following warning signs and symptoms of Stroke: * Sudden numbness or weakness of the face, arm or leg, especially on one side of the body * Sudden confusion, trouble speaking or understanding * Sudden trouble seeing in one or both eyes * Sudden trouble walking, dizziness, loss of balance or coordination * Sudden severe headache with no cause Do not delay calling 911 if you experience any warning signs or symptoms of a stroke. Delay in seeking medical attention may affect what treatments can be given to you. Call your Primary Care doctor if any of the following symptoms or problems start or get worse: * Shortness of breath or difficulty breathing * Wake up at night short of breath * Chest pain * Cough * Swelling of your hands, feet, or legs * More fatigued or tired with your normal activity * Palpitations - sudden fast heart beats WEIGHT * Weigh yourself every morning after using the bathroom. * Use the same scale. * Wear the same amount of clothing. * Write your weight down on a chart. * Call your Primary Care doctor if you gain more than 2-3 pounds in 1-2 days. MEDICATIONS * Use this discharge instruction sheet for medication instructions. * Take your medications at the time your doctor ordered. * Do not skip a dose of your medicines. * If you miss a dose of medicine, take it as soon as possible, but DO NOT DOUBLE A DOSE. * Read your medicine information when you get home. * Know all of the side effects of your medicine. If in doubt, ask your pharmacist * Call your Primary Care doctor's office if you have any side effects. * Be sure all of your doctors know what medicine and herbs you take (including cold, flu, and herbal medicine). Take the following with you to your follow-up doctor appointments: * Weight Chart * Medication List * List of questions Do not drink excessive alcohol, beer or wine. Pending Studies at Discharge: Yes Studies:: Blood Cultures Stand-Alone Forms: [facility] Skilled Items Patient informed of condition?: Yes DNR: No Discharge Level of Care: Acute rehab Communicable Disease: No Discharge Prognosis: Improving Lines: None Urinary Catheter: No Medications and DC Order Prescriptions: New doxycycline hyclate 100 mg Capsule 100 mg PO BID Qty: 6 RF: 0 clopidogrel 75 mg Tablet 75 mg PO QAM Qty: 30 RF: 1 nicotine 7 mg/24 hr Patch 24 Hour 14 mg transdermal QAM Qty: 30 RF: 0 atorvastatin 40 mg Tablet 40 mg PO QAM Qty: 30 RF: 1 prednisone 10 mg tablet 10 mg PO UD Qty: 30 RF: 0 ipratropium-albuterol 0.5 mg-3 mg(2.5 mg base)/3 mL Solution For Nebulization 3 ml NEB Q6R PRN (Reason: shortness of breath or wheezing) Qty: 0 RF: 0 Continued losartan 50 mg tablet 25 mg PO DAILY RF: 0 trazodone 50 mg tablet 50 mg PO DAILY RF: 0 colesevelam 625 mg tablet 625 mg PO BID RF: 0 gabapentin 100 mg capsule 100 mg PO BIDM RF: 0 metoprolol succinate 25 mg tablet extended release 24 hr 25 mg PO DAILY RF: 0 metformin 500 mg tablet extended release 24 hr 500 mg PO QPM RF: 0 oxycodone 5 mg tablet 2.5 mg PO DAILY PRN (Reason: Pain) RF: 0 Trelegy Ellipta 100-62.5-25 mcg blister with device 1 inh INHALATION DAILY RF: 0 isosorbide mononitrate 20 mg Tablet 20 mg PO BID RF: 0 aspirin [Aspir-81] 81 mg Tablet,Delayed Release (Dr/Ec) 81 mg PO DAILY RF: 0 furosemide 20 mg Tablet 20 mg PO MOWEFR RF: 0 cholecalciferol (vitamin D3) [Vitamin D3] 125 mcg (5,000 unit) Tablet 5,000 unit PO DAILY RF: 0 sertraline 100 mg Tablet 100 mg PO DAILY RF: 0 Discontinued ezetimibe 10 mg tablet 10 mg PO HS RF: 0 Discharge Orders: Discharge Order (Routine); Ordered 07/20/19 Ordered By: Yunior Wheatley Admission Data Admit Date/Time: 07/16/19 14:05 Attending Provider: Yunior Wheatley Admit Provider: Julissa Vasquez Primary Care Provider: Larry Barriga Other Providers: Julissa Vasquez ; Erasto Morgan ; Isabel Tran ; Judah Vann ; Ludwig Joy ; Sawyer Messina ; [facility] Other Interventions: Discharge Summary Assessment (RN) Last Done: 07/20/19 15:34 DC Date/Time DO NOT enter until pt leaves facility: 07/20/19 16:26
[2019-07-20] MEDS ORDERED: methylPREDNISolone 40 MG in SYRINGE 0 ML IV SCH (21:00)
[2019-07-21] MEDS ORDERED: methylPREDNISolone 40 MG in SYRINGE 0 ML IV SCH (09:00)
== END 2019-07-20 16:26 | DRG 190 ==
LOC: ED 10:16 → 2S 14:05 → SUATTDRO 14:05 → 2S 15:29